=== PATIENT | female | born 1950 | race Caucasian/White ===

== ENCOUNTER 2018-06-27 02:16 | Outpatient (CLI) | payer MEDICARE, BC, SELFPAY ==
[2018-06-27 11:06] LABS: ALT 23 U/L (12-78); AST 20 U/L (15-37); Albumin 3.6 g/dL (3.4-5.0); Alkaline Phosphatase 82 U/L (46-116); Anion Gap 7.9 mmol/L (3-11); BUN 14 mg/dL (7-18); Bilirubin, Total 0.3 mg/dL (0.2-1.0); CO2 27.1 mmol/L (21.0-32.0); Chloride 107 mmol/L (98-107); Glucose 96 mg/dL (70-100); Sodium 142 mmol/L (136-145); Total Protein 6.5 g/dL (6.4-8.2)
== END 2018-06-27 02:36 ==
DX: R63.8 Other symptoms and signs concerning food and fluid intake (principal); M53.9 Dorsopathy, unspecified; G14 Postpolio syndrome; M16.11 Unilateral primary osteoarthritis, right hip
CPT/HCPCS: 36415; 80053

== ENCOUNTER 2018-11-19 13:12 | Emergency (ER) | payer MEDICARE, BC, SELFPAY ==
[2018-11-19] VITALS (37 sets, daily range): BP systolic 98–137; BP diastolic 48–77; PULSE 64–92; RESP 10–20; TEMP 36.6–37; O2SAT 95–100
--- NOTE | 2018-11-19 13:26 | DI.CT_ITS ---
SYMPTOMS/DIAGNOSIS: ? DISSECTION, CHEST PAIN CT ANGIOGRAPHY OF THE CHEST, ABDOMEN AND PELVIS: CT angiography was performed with multi slice acquisition and multi planar and 3D reconstruction. There is no evidence of pulmonary emboli or aortic dissection. There is mild calcific plaque in the aortic arch and proximal left subclavian artery. There is no significant subclavian stenosis. No pleural or pericardial effusions are seen. The heart is normal in size. The lungs are clear. There is no adenopathy. The aorta is normal in diameter throughout. There is no aneurysm, dissection or significant stenosis. There is no significant plaque. The visualized portions of the proximal femoral arteries are unremarkable. The renal, celiac and mesenteric arteries show no evidence of occlusion or thrombus. The liver, gallbladder, spleen, pancreas and adrenals are unremarkable. Right renal cysts are seen. There is no urinary tract calculi or hydronephrosis. There is diverticulum of the descending duodenum. There is no bowel dilatation or inflammatory change. Diverticula are also seen in the lower descending and sigmoid colon. There are bilateral hip prostheses creating artifact. The bladder and uterus are partially obscured. Degenerative changes are seen in the spine. IMPRESSION: No acute abnormality. There is diverticulosis of the sigmoid as well as a diverticulum of the descending duodenum.
--- NOTE | 2018-11-19 13:34 | ED.GENADUL_ITS ---
Discharge Plan Disposition Patient Disposition: HOME Condition: Stable Discharge Details Chief Complaint: Chest Pain Clinical Impression: Chest pain Reason For Visit: chest pain Primary Care Provider: Ariella Nj ED Provider: Ghassan Shukla Home Meds and New Rx's Prescriptions: New chlorzoxazone 500 mg tablet 500 mg PO QID PRN (Reason: pain) Qty: 30 RF: 0 Continued cephalexin 500 mg tablet See Patient Comments PO PRN RF: 0 psyllium husk [Metamucil] 0.52 GM capsule 1 - 2 cap PO DAILY RF: 0 loratadine 10 MG tablet 10 mg PO DAILY Qty: 30 RF: 6 chlorzoxazone 500 MG tablet 500 mg PO Q6H PRN Qty: 30 RF: 0 Discharge Instructions Instructions: Chest Pain (ED) Additional Instructions: follow up with your primary care provider within a week If you feel your pain is worsening, you have difficulty breathing or persistent vomit return to the emergency department Medical Decision Making 68 yo female who denies any hx of htn, hld, dm, has hx of polio when younger, comes in with chest discomfort since last night with some belching and left shoulder pain and upper back pain intermittently. She states she has had this in the past and was told likely muscle spasm and took a msucle relaxant this AM with some relief of the pain. She has mild epigastric pain, no guarding, has pain when I palpate the mid chest, clear lungs on exam. Her heart score is 2 based on her age, will send troponin to eval for acs. No hypoxia or tachycardia or evidence of dvt to suggest PE. Given some back pain and abdominal pain will obtain CTA to eval for dissection initial lab results unremarkable, ct on my read is also unremarkable, awaiting vrad report. She denies any chest pain but states she feels spasms in ner left shoulder she normally takes a muscle relaxer for and would like meds for that. Will order delta troponin and monitor pt remains stable, only has pain when I palpate the left atnerior chest wall, second troponin negative. She is requesting a refill of her chlozoxazone which I will provide, advised f/u with pcp and return precautions given Differential Diagnosis acs, dissection, muscle spasm, strain Medical Records Medical records reviewed: Yes I reviewed the patient's medical records. Imaging Data Radiologic Study: Attestation: I personally reviewed and interpreted this imaging study as follows: Imaging: CT Scan Radiologist's impression: no acute findings on CTA thorax/abd/pelvis Lab Data Lab results reviewed: Yes I reviewed the patient's lab results. ECG Data Attestation: I personally reviewed and interpreted this ECG (s) as follows: Prior ECG tracings: not available for review Interpretation: sinus rhyth, rate of 84, pr 146, no acute st t wave ischemic findings 2nd ekg shows sinus rhythm, rate of 71, pr 148, no acute st t wave ischemic changes HPI General Mode of arrival: ambulatory . Date/Time Provider Initiated Documentation: 11/19/18 13:14 . Limitations to Documentation: no limitations . Information obtained by: patient . History of Present Illness 68 year old F presents to the emergency department with the chief complaint of chest pain, described as moderate, with intensity rated at 5. Quality is described as aching, and is localized to the chest. Patient started experiencing this day(s) (1) and it has been constant. other things that improve symptom(s), (muscle relaxer) Other factors that worsen symptoms (pushing on chest) . Patient did receive the following treatments prior to arrival, other (muscle relaxer this AM) Related Data Home Medications Medication Instructions Recorded Confirmed psyllium husk [Metamucil] 1 - 2 cap PO DAILY 02/28/13 11/19/18 loratadine 10 mg PO DAILY #30 tab-cap 06/10/16 11/19/18 chlorzoxazone 500 mg PO Q6H PRN #30 tab-cap 10/07/17 11/19/18 cephalexin 500 mg tablet See Rx Instructions PO PRN tab 09/04/18 11/19/18 chlorzoxazone 500 mg PO QID PRN #30 tab 11/19/18 Previous Rx's Medication Instructions Recorded chlorzoxazone 500 mg PO Q6H PRN #30 tab-cap 10/07/17 chlorzoxazone 500 mg PO QID PRN #30 tab 11/19/18 Allergies Allergy/AdvReac Type Severity Reaction Status Date / Time CERTAIN ODORS Allergy Mild COUGH, Uncoded 11/19/18 13:35 SNEEZES Review of Systems Review of Systems All systems reviewed & are unremarkable except as noted in HPI and below Constitutional Denies chills, Denies fever(s) and Denies weakness Eyes Denies loss of vision ENT Denies change in voice Cardiovascular Denies dyspnea Respiratory Denies cough and Denies dyspnea Gastrointestinal Denies nausea and Denies vomiting Genitourinary Denies dysuria Musculoskeletal Denies joint swelling Integumentary/Breasts Denies rash Neurologic Denies loss of vision and Denies weakness Psychiatric Denies depression Endocrine Denies cold intolerance and Denies heat intolerance Allergic/Immunologic Denies urticaria PFSH Family History Mother Lung cancer Father Diabetes Essential hypertension Hyperlipidemia Stroke Brother Neoplasm Grandfather Liver cirrhosis Grandfather Heart disease Grandmother Neoplasm Social History household members: spouse highest education level completed: some college, no degree current occupational status: retired and disabled pets and animals: Yes pets and animals: cat(s) what type of physical activity do you participate in: walking and bicycling frequency: 5-6 times per week duration: 45-60 minutes/day Smoking and Tabacco status: Never Pasive smoking exposure: Yes alcohol intake: never substance use type: does not use natalie/spiritism: No preference special natalie needs: No Exam Const General: no acute distress Orientation: alert HENMT Head: normal to inspection Ears: external ears normal General nose exam: external nose normal Mouth: moist mucous membranes Eyes General: appearance normal, both eyes and all related structures Neck Neck: normal visual inspection Resp Effort & Inspection: normal respiratory effort and able to speak in complete sentences Cardio Rate: regular rate Skin General skin exam: no rashes or lesions noted Neuro General: alert and oriented x3 Extrem General: normal to inspection Psych Mental Status: mental status grossly normal
[2018-11-19] MEDS: Normal Saline Flush 10 ML SYR IVP (13:59)
[2018-11-19 14:20] LABS: ALT 21 U/L (12-78); AST 20 U/L (15-37); Albumin 3.6 g/dL (3.4-5.0); Alkaline Phosphatase 91 U/L (46-116); Anion Gap 10.4 mmol/L (3-11); BUN 15 mg/dL (7-18); Bilirubin, Direct 0.09 mg/dL (0.00-0.20); Bilirubin, Total 0.3 mg/dL (0.2-1.0); CO2 28.6 mmol/L (21.0-32.0); CREATININE 0.76 mg/dL (0.55-1.02); Calcium 9.1 mg/dL (8.5-10.1); Chloride 104 mmol/L (98-107); Glucose 100 mg/dL (70-100); Lipase 130 U/L (73-393); Magnesium 1.8 mg/dL (1.8-2.4); Potassium 3.8 mmol/L (3.5-5.1); Sodium 143 mmol/L (136-145); Total Protein 7.5 g/dL (6.4-8.2)
[2018-11-19] MEDS: Omnipaque 350 MG/ML 100 ML BTL IJ (14:21)
[2018-11-19 14:23] LABS: Troponin I < 0.02 ng/mL (0.00-0.06)
[2018-11-19 14:24] LABS: INR 0.9 (0.9-1.1); PTT Activated 22.3 sec (21.0-31.4); Prothrombin Time 9.4 sec (9.3-11.0)
[2018-11-19] MEDS: Cyclobenzaprine 10 MG TAB PO (14:52)
--- NOTE | 2018-11-19 15:07 | DI.VRAD_ITS ---
EXAM: CT Angiography Chest With Contrast EXAM DATE/TIME: 11/19/2018 1:28 PM CLINICAL HISTORY: 68 years old, female; Pain; Chest pain; Type not specified; Other: Mid back pain TECHNIQUE: Axial computed tomographic angiography images of the chest with intravenous contrast using CT angiography protocol. MIP reconstructed images were created and reviewed. COMPARISON: No relevant prior studies available. FINDINGS: Pulmonary arteries: No pulmonary emboli identified. Aorta: Minimal calcified plaque of the aortic arch and descending thoracic aorta. No aortic aneurysm or dissection. Great vessels off aortic arch: Minimal calcified plaque within the proximal left subclavian artery. No significant stenosis. Lungs: Normal. No consolidation. No masses. Pleural space: Normal. No pneumothorax. No pleural effusion. Heart: Normal. No cardiomegaly. No pericardial effusion. Lymph nodes: Unremarkable. No enlarged lymph nodes. Bones/joints: Degenerative spondylosis of the thoracic spine. No acute fracture. Soft tissues: Unremarkable. IMPRESSION: No acute abnormality. EXAM: CT Angiography Abdomen and Pelvis With Contrast EXAM DATE/TIME: 11/19/2018 1:28 PM CLINICAL HISTORY: 68 years old, female; Pain; Chest pain; Type not specified; Other: Mid back pain TECHNIQUE: Axial computed tomographic angiography images of the abdomen and pelvis with intravenous contrast material, including non-contrast images if performed. MIP and/or 3D reconstructed images were created and reviewed. COMPARISON: No relevant prior studies available. FINDINGS: Limitations: Evaluation of the lower pelvis is limited by artifact from bilateral total hip prostheses. VASCULATURE: Aorta: No aortic aneurysm. No aortic dissection. Celiac trunk and mesenteric arteries: No occlusion or significant stenosis. Renal arteries: Minimal calcified plaque at the origin of the left renal artery. No significant stenosis. The right renal artery is widely patent. Right iliac arteries: No occlusion or significant stenosis. Right femoral/popliteal arteries: No occlusion or significant stenosis of the imaged proximal femoral artery. The popliteal artery was not imaged. Left iliac arteries: No occlusion or significant stenosis. Left femoral/popliteal arteries: No occlusion or significant stenosis of the imaged proximal femoral artery. The popliteal artery was not imaged. ABDOMEN: Liver: No mass. Gallbladder and bile ducts: Unremarkable. No calcified stones. No ductal dilation. Pancreas: Unremarkable. No mass. No ductal dilation. Spleen: Unremarkable. No splenomegaly. Adrenals: Unremarkable. No mass. Kidneys and ureters: 3.6 cm and 1.9 cm cyst within the right kidney. No right renal stone or hydronephrosis. Normal left kidney. No left hydronephrosis. The distal ureters are suboptimally visualized secondary to artifact from bilateral total hip prostheses. Stomach and bowel: 2.3 cm diverticulum of the descending duodenum. No duodenal diverticulitis. Mild colonic diverticulosis is present. The No diverticulitis. Unremarkable stomach and small bowel. Appendix: No evidence of appendicitis. PELVIS: Bladder: Unremarkable. No mass. Reproductive: Unremarkable as visualized. ABDOMEN and PELVIS: Intraperitoneal space: Unremarkable. No free air. No significant fluid collection. Bones/joints: Degenerative spondylosis of the lumbar spine. No acute fracture. Soft tissues: Unremarkable. Lymph nodes: Unremarkable. No enlarged lymph nodes. IMPRESSION: No acute abnormality. Dictated and Authenticated by: Yonathan Hines MD. Ordering:ABBI Ferrell MD
[2018-11-19 17:01] LABS: Troponin I < 0.02 ng/mL (0.00-0.06)
== END 2018-11-19 17:27 | disposition home or self-care (01) ==
PROVIDERS: Emergency Provider Emergency Medicine
DX: R07.9 Chest pain, unspecified (principal)
CPT/HCPCS: 36415; 71275; 74177; 80053; 80076; 83690; 93005; 99285; 83735; 84484; 85610; 85730; 93010; J3490

== ENCOUNTER 2019-06-26 08:26 | Outpatient (CLI) | payer MEDICARE, BC, SELFPAY ==
[2019-06-26 10:49] LABS: Calculated LDL 94 mg/dL; Cholesterol 177 mg/dL (50-200); HDL Cholesterol 51 mg/dL (40-60); Triglyceride 160 mg/dL (30-150)
== END 2019-06-26 08:46 ==
DX: E78.2 Mixed hyperlipidemia (principal); I10 Essential (primary) hypertension
CPT/HCPCS: 36415; 80061

== ENCOUNTER 2019-07-24 01:47 | Outpatient (CLI) | payer MEDICARE, BC, SELFPAY ==
--- NOTE | 2019-07-24 12:48 | DI.MAMMO_ITS ---
EXAM: MG MAMMO SCREENING CLINICAL HISTORY: screening Z12.39 TECHNIQUE: Bilateral full field digital CC and MLO mammographic images were obtained with 3D tomosyn thesis and utilizing computer aided detection (CAD). COMPARISON: Available for comparison. FINDINGS: Masses/Architectural Distortion: There is an area of asymmetric breast tissue in the outer central le ft breast on the craniocaudad view. This likely reflects overlying fibroglandular tissue. A spot co mpression view is requested for further evaluation. Microcalcifications: No suspicious pleomorphic-type are seen. Skin Thickening/Nipple Retraction: None. IMPRESSION: Additional views of the left breast as described above. BI-RADS Cat 0 - Assessment Incomplete: Need additional imaging evaluation Breast Density - Category B - Scattered areas of fibroglandular density A negative radiographic report should not delay biopsy if a dominant or clinically suspicious mass is present. Up to ten percent of cancers are not identified on mammography. A negative report may reinforce clinical impression. Adenosis and dense breasts may obscure an underlying neoplasm. False positive reports average 6 to 10%.
== END 2019-07-24 02:07 ==
DX: Z12.39 Encounter for other screening for malignant neoplasm of breast (principal); R92.8 Other abnormal and inconclusive findings on diagnostic imaging of breast
CPT/HCPCS: 77063; 77067

== ENCOUNTER 2019-07-27 00:40 | Outpatient (CLI) | payer MEDICARE, BC, SELFPAY ==
--- NOTE | 2019-07-27 14:31 | DI.MAMMO_ITS ---
EXAM: MG MAMMO SCREEN CALL BACK UNI CLINICAL HISTORY: F/U MAMMO, ASYMMETRIC BREAST TISSUE LT BREAST TECHNIQUE: Additional images are interpreted according to the usual protocol including tomosynthesis and 2D imaging. COMPARISON: 2010 through June,. FINDINGS: A CC spot compression view with tomography was performed for questioned asymmetric density. No persi stent abnormality is seen. The findings are consistent with overlying fibroglandular tissue. IMPRESSION: Category 1, negative mammogram. Yearly screening mammography is recommended. BI-RADS Cat 1 - Negative Breast Density - Category B - Scattered areas of fibroglandular density
== END 2019-07-27 01:00 ==
DX: Z12.31 Encounter for screening mammogram for malignant neoplasm of breast (principal); R92.8 Other abnormal and inconclusive findings on diagnostic imaging of breast; N64.59 Other signs and symptoms in breast
CPT/HCPCS: 77063; 77067

== ENCOUNTER 2020-01-19 14:00 | Emergency (ER) | payer MEDICARE, BC, SELFPAY ==
[2020-01-19 14:05] VITALS: BP 177/73; PULSE 94; RESP 14; TEMP 36.7; O2SAT 95
--- NOTE | 2020-01-19 14:13 | W.ED.GENAD ---
Discharge Plan Disposition Patient Disposition: HOME Condition: Improving Discharge Details Chief Complaint: Orthopedic Clinical Impression: Left wrist sprain Primary Care Provider: Ariella Nj ED Provider: Satish Dominguez Home Meds and New Rx's Prescriptions: Continued cephalexin 500 mg tablet See Rx Instructions PO PRN RF: 0 chlorzoxazone 500 mg tablet 500 mg PO QID PRN (Reason: pain) Qty: 30 RF: 1 Discharge Instructions Instructions: Wrist Sprain (ED) Additional Instructions: May remove splint at bedtime and for bathing. Anticipate use over approximately 5 to 7 days time. Continue ice to reduce discomfort. You may use Tylenol as well as needed for pain. Return for increasing pain, development of cold/blue/numbness of the fingertips or any other acute concerns. Medical Decision Making 69-year-old female slipped and fell outside landing on outstretched left hand. She felt immediate distal radius pain. She is improved at the time of arrival after the application of ice. She does have mild pain and swelling on exam. Referred for x-ray to rule out underlying bony fracture. Radiograph without underlying evidence of acute fracture. Will place in wrist splint and discussed with her anticipated course of resolution/weaning from the splint. She will continue the use of ice, [id number] analgesics as needed. She is stable for discharge to home. [facility] General Mode of arrival: ambulatory. Date/Time Provider Initiated Documentation: 01/19/20 14:01. Limitations to Documentation: no limitations. Information obtained by: patient. History of Present Illness 69 year old F presents to the emergency department with the chief complaint of Left wrist pain after fall, described as mild, Quality is described as dull and constant, and is localized to the left and upper extremity. Patient started experiencing this minute(s) Rest improves symptom(s), Movement worsens symptoms . Patient notes no other symptoms.. Patient did receive the following treatments prior to arrival, cold therapy Related Data Home Medications Medication Instructions Recorded Confirmed cephalexin 500 mg tablet See Rx Instructions PO PRN tab 09/04/18 01/19/20 chlorzoxazone 500 mg tablet 500 mg PO QID PRN #30 tab 12/19/19 01/19/20 Previous Rx's Medication Instructions Recorded chlorzoxazone 500 mg tablet 500 mg PO QID PRN #30 tab 12/19/19 Allergies Allergy/AdvReac Type Severity Reaction Status Date / Time CERTAIN ODORS Allergy Mild COUGH, Uncoded 01/19/20 14:09 SNEEZES General Stated Complaint: Orthopedic GERARDO: 4 Review of Systems Narrative: No other injury, has been well and self isolating, no other complaints. 4 systems reviewed and otherwise negative [facility] Surgical History Arthroplasty of knee 03/14/14; [facility]; RIGHT TKR section X2 Ligation of fallopian tube Rotator Cuff Repair (~2006) and labrium Total replacement of hip LEFT Family History Mother , age 70 Lung cancer Father , age 70 Diabetes Essential hypertension Hyperlipidemia Stroke Brother , age 65 Cancer of head Primary cancer of sternum Lung cancer Liver cancer Maternal Grandfather , age 69 Liver cirrhosis Alcohol abuse Paternal Grandfather , age 43 Heart disease Maternal Grandmother Leukemia Paternal Grandmother , age 92 No problems noted. Son No problems noted. Daughter Asthma sports induced Social History Smoking/Tobacco Use Status: Never Alcohol Intake: never Drug use: Never Substance use type: does not use Caregiver/Support person: No Household members: spouse Housing: house Communication Needs: None Pets and animals: Yes Pets and animals: cat(s) Sexually active: No Do you think of yourself as: straight/heterosexual Current gender identity: female What is your relationship status?: How often do you talk on the phone with friends or family?: three or more times per week How often do you get together with friends or relatives?: twice per week How often do you attend congregation or baptism services?: decline to answer Do you belong to any clubs or organized social groups?: no Panel score (0-1 are the most socially isolated patients): 2 What type of physical activity do you participate in: walking and bicycling Duration: 45-60 minutes/day Frequency: 5-6 times per week Roselia/Taoism: None Special roselia needs: No Seatbelt use: always Helmet use: Yes Helmet use: sometimes Drive intox or ride w/intox taxicab driver: No Do you feel safe at home: Yes Do you feel safe in your relationship?: Yes Exam Narrative Exam Narrative: GEN: awake, alert, oriented 3. Pleasant, well groomed, interactive. HEAD: Normocephalic, atraumatic ENT: Mucous membranes moist, External ear exam unremarkable EYES: PERRL, EOMI CHEST/RESP: Nontender EXT: Full ROM, no edema, no rash. Mild swelling left distal radius, tenderness on the volar surface on palpation. Patient able to demonstrate normal range of motion, normal sensation. Neuro: Grossly normal neurologic exam, conversant, interactive. Psych: Speech fluent, thoughts congruent, affect normal Course Vital Signs Vital signs: Vital Signs Temperature 36.7 C 01/19/20 14:05 Pulse 94 H 01/19/20 14:05 Respiratory Rate 14 01/19/20 14:05 Blood Pressure 177/73 H 01/19/20 14:05 Pulse Oximetry 95 01/19/20 14:05 Temperature 36.7 C 01/19/20 14:05 Temperature Source Skin 01/19/20 14:05 Pulse 94 H 01/19/20 14:05 Respiratory Rate 14 01/19/20 14:05 Respiratory Effort Non-Labored 01/19/20 14:10 Blood Pressure 177/73 H 01/19/20 14:05 Blood Pressure Position Sitting 01/19/20 14:05 Pulse Oximetry 95 01/19/20 14:05 Oxygen Delivery Method Room Air 01/19/20 14:05 Oxygen Flow Rate 0 01/19/20 14:05 Pain Level 3 01/19/20 14:05
--- NOTE | 2020-01-19 14:20 | DI.RAD_ITS ---
EXAM: XR WRIST LT COMPLETE CLINICAL HISTORY: pain after fall. TECHNIQUE: 2D digital imaging was performed. COMPARISON: No exams were available for comparison FINDINGS: BONES: There are osseous densities seen at the dorsum of the wrist on the lateral view which may repr esent mildly displaced fracture fragments. Please correlate with the patient's site of pain. No bon y destructive lesion is seen. JOINTS: The carpal bones are normally aligned. Degenerative changes are seen at the interphalangeal j oint of the thumb. SOFT TISSUE: Soft tissue swelling about the wrist is noted. IMPRESSION: Osseous densities seen at the dorsum of the wrist. These may represent fracture fragments. Please c orrelate with the patient's site of pain. DATA REPOSITORY: RADIATION DOSE DELIVERED:
--- NOTE | 2020-01-19 14:24 | DI.VRAD_ITS ---
PROCEDURE INFORMATION: Exam: XR Left Wrist Exam date and time: 01/19/2020 2:19 PM Age: 69 years old Clinical indication: Patient HX: Left wrist pain after injury today. TECHNIQUE: Imaging protocol: XR Left wrist. Views: 3 or more views. COMPARISON: No relevant prior studies available. FINDINGS: Bones/joints: Unremarkable. No acute fracture. Soft tissues: Normal. IMPRESSION: No acute findings. Dictated and Authenticated by: Zak Sanchez MD. Ordering:HILDA Covarrubias MD
== END 2020-01-19 14:35 | disposition home or self-care (01) ==
PROVIDERS: Emergency Provider Emergency Medicine
DX: S63.502A Unspecified sprain of left wrist, initial encounter (principal); W01.0XXA Fall on same level from slipping, tripping and stumbling without subsequent striking against object, initial encounter
CPT/HCPCS: 29125; 99283; 73110; L3908

== ENCOUNTER 2020-07-08 01:48 | Outpatient (CLI) | payer MEDICARE, BC, SELFPAY ==
[2020-07-08 12:53] LABS: ALT 20 U/L (14-59); AST 17 U/L (15-37); Albumin 3.7 g/dL (3.4-5.0); Alkaline Phosphatase 75 U/L (46-116); Anion Gap 11.4 mmol/L (3-11); BUN 15 mg/dL (7-18); Bilirubin, Total 0.4 mg/dL (0.2-1.0); CO2 28.6 mmol/L (21.0-32.0); CREATININE 0.75 mg/dL (0.55-1.02); Chloride 105 mmol/L (98-107); Glucose 90 mg/dL (74-106); Potassium 4.1 mmol/L (3.5-5.1); Sodium 145 mmol/L (136-145); Total Protein 6.6 g/dL (6.4-8.2)
== END 2020-07-08 02:08 ==
DX: K21.9 Gastro-esophageal reflux disease without esophagitis (principal); M53.9 Dorsopathy, unspecified; R63.8 Other symptoms and signs concerning food and fluid intake
CPT/HCPCS: 36415; 80053

== ENCOUNTER 2021-01-27 17:32 | Outpatient (CLI) | payer MEDICARE, BC, SELFPAY ==
--- NOTE | 2021-01-27 13:48 | DI.RAD_ITS ---
Exam(s) XR CERVICAL SPINE COMP 4-5V EXAM: XR CERVICAL SPINE COMP 4-5V CLINICAL HISTORY: neck pain, M54.2, cervicalgia. TECHNIQUE: 2D digital imaging was performed. COMPARISON: No exams were available for comparison FINDINGS: The odontoid is intact. The lateral masses are well aligned. There is straightening of the normal c ervical lordosis. This may be due to muscle spasm or patient positioning. Disc space narrowing is s een at C5-6 and C6-C7. There are endplate osteophytes at multiple levels of the cervical spine. Fac et arthropathy is seen throughout the cervical spine. On the right, there is moderate narrowing of t he neural foramen at C3-C4. On the left, [id number] narrowing of the neural foramen is seen fr om C3-4 through C5-C6. IMPRESSION: [id number] cervical spondylosis. DATA REPOSITORY: RADIATION DOSE DELIVERED:
== END 2021-01-27 17:52 ==
PROVIDERS: Visit Provider Nurse Practitioner Family
DX: M54.2 Cervicalgia (principal); M47.812 Spondylosis without myelopathy or radiculopathy, cervical region
CPT/HCPCS: 72050

== ENCOUNTER 2021-07-02 02:53 | Outpatient (CLI) | payer MEDICARE, BC, SELFPAY ==
[2021-07-02 12:55] LABS: ALT 23 U/L (14-59); AST 19 U/L (15-37); Albumin 3.9 g/dL (3.4-5.0); Alkaline Phosphatase 79 U/L (46-116); Anion Gap 7.1 mmol/L (3-11); BUN 16 mg/dL (7-18); Bilirubin, Total 0.3 mg/dL (0.2-1.0); CO2 28.9 mmol/L (21.0-32.0); CREATININE 0.7 mg/dL (0.55-1.02); Calcium 9.2 mg/dL (8.5-10.1); Chloride 107 mmol/L (98-107); Glucose 88 mg/dL (74-106); Potassium 4.2 mmol/L (3.5-5.1); Sodium 143 mmol/L (136-145); Total Protein 6.8 g/dL (6.4-8.2)
== END 2021-07-02 02:54 | disposition home or self-care (01) ==
LOC: LOS 02:53
DX: K21.9 Gastro-esophageal reflux disease without esophagitis (principal); Z00.00 Encounter for general adult medical examination without abnormal findings; M54.59 Other low back pain
CPT/HCPCS: 36415; 80053

== ENCOUNTER 2021-09-10 00:52 | Outpatient (CLI) | payer MEDICARE, BC, SELFPAY ==
--- NOTE | 2021-09-10 10:46 | DI.MAMMO_ITS ---
Exam(s) MAMMO SCREENING EXAM: MAMMO SCREENING CLINICAL HISTORY: screening,Z12.39. TECHNIQUE: Bilateral full field digital CC and MLO mammographic images were obtained with 3D tomosyn thesis and utilizing computer aided detection (CAD). COMPARISON: Prior mammograms dating back to 2012, the most recent being June 2019. FINDINGS: No CAD designations There are no new spiculated masses nor malignant appearing microcalcification groups. There is no significant architectural distortion nor skin thickening-retraction. IMPRESSION: No radiographic evidence of malignancy. BI-RADS Category 1 - Negative Breast Density - Category B - Scattered areas of fibroglandular density Breast density Category C or D implies that the patient has dense breast tissue. Dense breast tissue can make it harder to find cancer on a mammogram. Dense breast tissue is also associated with an incr eased risk of breast cancer. This information about the result of the mammogram report was provided to the patient to raise their awareness. Use this report when you speak with the patient about their risks for breast cancer, which includes their family history. At that time, you may recommend additional screening tests (Ultrasoun d or MRI) as these tests may add significant information. A negative radiographic report should not delay biopsy if a dominant or clinically suspicious mass is present. Up to ten percent of cancers are not identified on mammography. A negative report may reinforce clinical impression. Adenosis and dense breasts may obscure an underlying neoplasm. False positive reports average 6 to 10%. Patient will receive a letter notifying them of these results.
== END 2021-09-10 01:12 ==
DX: Z12.31 Encounter for screening mammogram for malignant neoplasm of breast (principal)
CPT/HCPCS: 77063; 77067

== ENCOUNTER 2021-09-14 14:15 | Outpatient (REF) | payer MEDICARE, BC, SELFPAY ==
--- NOTE | 2021-09-14 11:45 | SKI_PTH ---
PATIENT: Marlen Vasquez LOC: [facility]#:[id number] AGE/SX: 70/F ROOM: RE09/14/[address]: Ariella Nj APRN : 1950 BED: DIS: 09/14/2021 SPEC #: [id number] RECD: 09/14/21 18:29 STATUS: [place]GET[place] REQ #: [id number] MARK: 09/14/21 11:[address]: Ariella Nj DEPT: Surgical Specimen RECD BY: Yohana Painting Tissues: 1 - SKIN CYST/TAG/DEBRIDEMENT Procedures: GROSS AND MICRO LEVEL 3 Comments: [id number]
== END 2021-09-14 14:16 | disposition home or self-care (01) ==
LOC: LBN 14:15
DX: L72.8 Other follicular cysts of the skin and subcutaneous tissue (principal)
CPT/HCPCS: 88304

== ENCOUNTER 2021-10-26 15:13 | Outpatient (REF) | payer MEDICARE, BC, SELFPAY ==
[2021-10-28 09:27] LABS: COVID-19 RT-PCR UVMMC Result Indeterminate (Negative)
== END 2021-10-26 15:14 | disposition home or self-care (01) ==
LOC: LBN 15:13
PROVIDERS: Visit Provider Nurse Practitioner Family
DX: Z20.822 Contact with and (suspected) exposure to COVID-19 (principal)
CPT/HCPCS: U0003

== ENCOUNTER 2022-04-05 11:31 | Outpatient (REF) | payer MEDICARE, BC, SELFPAY ==
[2022-04-06 01:21] LABS: COVID-19 RT-PCR UVMMC Result Negative (Negative)
== END 2022-04-05 11:32 | disposition home or self-care (01) ==
LOC: LBN 11:31
PROVIDERS: Visit Provider Nurse Practitioner Family
DX: Z20.822 Contact with and (suspected) exposure to COVID-19 (principal)
CPT/HCPCS: U0003

== ENCOUNTER 2022-04-06 02:08 | Outpatient (CLI) | payer MEDICARE, BC, SELFPAY | END 2022-04-06 02:09 | disposition home or self-care (01) | LOC: LBO 02:08 | PROVIDERS: Visit Provider Nurse Practitioner Family ==

== ENCOUNTER 2022-10-08 01:20 | Outpatient (CLI) | payer MEDICARE, BC, SELFPAY ==
[2022-10-08 08:50] LABS: HCT 42.6 % (36.0-46.0); HGB 13.9 g/dL (11.2-15.7); MCH 28.8 pg (27.0-33.0); MCHC 32.6 % (32.0-36.0); MCV 88 fL (80-95); MPV 10.1 fL (8.0-11.0); Platelet Count 226 10^3/uL (130-400); RBC 4.82 10^6/uL (3.93-5.22); RDW 12.9 % (11.7-14.6); RDW-SD 41.7 fL; WBC 7.62 10^3/uL (4.4-10.8)
[2022-10-08 09:36] LABS: ALT 16 U/L (14-59); AST 22 U/L (15-37); Albumin 3.9 g/dL (3.4-5.0); Alkaline Phosphatase 82 U/L (46-116); Anion Gap 7.3 mmol/L (3-11); BUN 18 mg/dL (7-18); Bilirubin, Total 0.4 mg/dL (0.2-1.0); CO2 28.7 mmol/L (21.0-32.0); CREATININE 0.9 mg/dL (0.55-1.02); Calcium 9.6 mg/dL (8.5-10.1); Chloride 106 mmol/L (98-107); Glucose 101 mg/dL (74-106); Potassium 3.8 mmol/L (3.5-5.1); Sodium 142 mmol/L (136-145); Total Protein 7.6 g/dL (6.4-8.2)
[2022-10-08 10:08] LABS: Vitamin D 25 Total 29.7 ng/mL (30-100)
[2022-10-08 10:11] LABS: FREE T4 0.86 ng/dL (0.76-1.46)
== END 2022-10-08 01:21 | disposition home or self-care (01) ==
PROVIDERS: PCP Nurse Practitioner Family; Visit Provider Nurse Practitioner Family
DX: R53.83 Other fatigue (principal); G14 Postpolio syndrome; M53.9 Dorsopathy, unspecified; R63.8 Other symptoms and signs concerning food and fluid intake; E55.9 Vitamin D deficiency, unspecified
CPT/HCPCS: 36415; 80053; 82306; 85027; 84439; 84443

== ENCOUNTER 2022-10-14 02:37 | Outpatient (CLI) | payer MEDICARE, BC, SELFPAY ==
--- NOTE | 2022-10-14 07:15 | DI.MAMMO_ITS ---
Exam(s) MAMMO SCREENING EXAM: MAMMO SCREENING CLINICAL HISTORY: screening,Z12.39. TECHNIQUE: Bilateral full field digital CC and MLO mammographic images were obtained with 3D tomosyn thesis and utilizing computer aided detection (CAD). COMPARISON: Prior mammograms were reviewed. FINDINGS: There has been no significant change in the appearance and distribution of the fibroglandular tissue. There are no CAD designations. There are no new spiculated masses nor malignant appearing microcalcification groups. There is no significant architectural distortion nor skin thickening-retraction. IMPRESSION: No radiographic evidence of malignancy. BI-RADS Category 1 - Negative Breast Density - Category A - Almost entirely fatty Breast density Category C or D implies that the patient has dense breast tissue. Dense breast tissue can make it harder to find cancer on a mammogram. Dense breast tissue is also associated with an incr eased risk of breast cancer. This information about the result of the mammogram report was provided to the patient to raise their awareness. Use this report when you speak with the patient about their risks for breast cancer, which includes their family history. At that time, you may recommend additional screening tests (Ultrasoun d or MRI) as these tests may add significant information. A negative radiographic report should not delay biopsy if a dominant or clinically suspicious mass is present. Up to ten percent of cancers are not identified on mammography. A negative report may reinforce clinical impression. Adenosis and dense breasts may obscure an underlying neoplasm. False positive reports average 6 to 10%. Patient will receive a letter notifying them of these results.
== END 2022-10-14 02:57 ==
LOC: DI 02:37
PROVIDERS: PCP Nurse Practitioner Family; Visit Provider Nurse Practitioner Family
DX: Z12.31 Encounter for screening mammogram for malignant neoplasm of breast (principal)
CPT/HCPCS: 77063; 77067

== ENCOUNTER → 2023-10-17 01:26 | Outpatient (CLI) | payer MEDICARE, BC, SELFPAY ==
--- NOTE | 2023-10-17 11:55 | DI.MAMMO_ITS ---
Exam(s) MAMMO SCREENING EXAM: MAMMO SCREENING CLINICAL HISTORY: screening,Z12.39 TECHNIQUE: Mammograms were interpreted according to the usual protocol including computer analysis w [employer] CAD system, tomosynthesis and C-view imaging. COMPARISON: 2014 through 2022 FINDINGS: The breasts are composed of mainly fatty density , Breast Density category A. No suspicious masses or suspicious microcalcifications are seen. No skin thickening or abnormal axillary lymph nodes are seen. There has been no significant change from prior exams. IMPRESSION: BI-RADS Category 1, Negative mammogram Yearly screening mammography is recommended. Breast Density - Category A, fatty density. A negative radiographic report should not delay biopsy if a dominant or clinically suspicious mass is present. Up to ten percent of cancers are not identified on mammography. A negative report may reinforce clinical impression. Adenosis and dense breasts may obscure an underlying neoplasm. False positive reports average 6 to 10%. Patient will receive a letter notifying them of these results.
== END ==
PROVIDERS: PCP Nurse Practitioner Family; Visit Provider Nurse Practitioner Family
DX: Z12.31 Encounter for screening mammogram for malignant neoplasm of breast (principal)
CPT/HCPCS: 77063; 77067

== ENCOUNTER 2023-12-10 12:25 | Emergency (ER) | payer MEDICARE, BC, SELFPAY ==
[2023-12-10 12:27] VITALS: BP 202/78; PULSE 115; RESP 22; TEMP 36.5; O2SAT 95
--- NOTE | 2023-12-10 12:42 | ED.GENADUL_ITS ---
Discharge Plan Disposition Patient Disposition: Home Condition: Stable Discharge Details Clinical Impression: Nausea vomiting and diarrhea Primary Care Provider: Romain Hester ED Provider: Ghassan Shukla Home Meds and New Rx's Prescriptions: New ondansetron 4 mg tablet,disintegrating 4 mg PO Q8H PRN (Reason: nausea and vomiting) Qty: 30 0RF Continued chlorzoxazone 500 mg tablet 500 mg PO QID PRN (Reason: pain) Qty: 30 1RF All Day Allergy (cetirizine) 10 mg capsule 10 mg PO DAILY Qty: 90 3RF Discharge Instructions Instructions: Acute Nausea and Vomiting (ED) Additional Instructions: You are likely suffering from a viral stomach bug Not improving this week follow-up with your primary care provider Can take [id number] diarrhea aid such as Imodium or Pepto-Bismol, follow dosing instructions on packaging If you feel more ill, have persistent vomiting despite the prescribed medication or severe abdominal pain return to the emergency department for reevaluation HPI General Date/Time Provider Initiated Documentation: 12/10/23 12:27 . Limitations to Documentation: no limitations . Information obtained by: patient . History of Present Illness 73 year old F presents to the emergency department with the chief complaint of Nausea vomiting diarrhea, described as moderate, Patient started experiencing this day(s) (1) and it has been intermittent. No relieving factors improve symptom(s), No exacerbating factors reported . Patient notes denies chest pain and shortness of breath. Patient did receive the following treatments prior to arrival, none Related Data Home Medications Medication Instructions Recorded Confirmed chlorzoxazone 500 mg tablet 500 mg PO QID PRN pain #30 tabs 01/19/23 12/10/23 cetirizine 10 mg capsule (All Day 10 mg PO DAILY #90 caps 11/17/23 12/10/23 Allergy (cetirizine)) ondansetron 4 mg disintegrating 4 mg PO Q8H PRN nausea and 12/10/23 tablet vomiting #30 tabs Previous Rx's Medication Instructions Recorded chlorzoxazone 500 mg tablet 500 mg PO QID PRN pain #30 tabs 01/19/23 cetirizine 10 mg capsule (All Day 10 mg PO DAILY #90 caps 11/17/23 Allergy (cetirizine)) ondansetron 4 mg disintegrating 4 mg PO Q8H PRN nausea and 12/10/23 tablet vomiting #30 tabs Allergies Allergy/AdvReac Type Severity Reaction Status Date / Time CERTAIN ODORS Allergy Mild COUGH, Uncoded 12/10/23 12:32 SNEEZES General Stated Complaint: Nausea/Vomit/Diar GERARDO: 3 Review of Systems All systems reviewed & are unremarkable except as noted in HPI and below Constitutional Constitutional: Reports chills, Denies fever(s) and Denies weakness Cardiovascular Cardiovascular: Denies chest pain and Denies dyspnea Respiratory Respiratory: Denies cough and Denies dyspnea Gastrointestinal Gastrointestinal: Denies abdominal pain, Reports nausea and Reports vomiting Genitourinary Genitourinary: Denies dysuria Musculoskeletal Musculoskeletal: Denies joint swelling Integumentary/Breasts Skin/Breast: Denies rash Neurologic Neurologic: Denies weakness Exam Const General: no acute distress Orientation: alert HENMT Head: normal to inspection Ears: external ears normal General nose exam: external nose normal Mouth: moist mucous membranes Eyes General: appearance normal, both eyes and all related structures Neck Neck: normal visual inspection Resp Effort & Inspection: normal respiratory effort and able to speak in complete sentences Auscultation: clear to auscultation bilaterally Cardio Rate: regular rate Heart Sounds: no murmurs GI Palpation: soft and nontender Skin General skin exam: no rashes or lesions noted Neuro General: patient alert and patient oriented x3 Extrem General: normal to inspection Psych Mental Status: mental status grossly normal Course Vital Signs Vital signs: Vital Signs Temperature 36.5 C 12/10/23 12:27 Pulse 115 H 12/10/23 12:27 Respiratory Rate 22 12/10/23 12:27 Blood Pressure 202/78 H 12/10/23 12:27 Pulse Oximetry 95 12/10/23 12:27 Temperature 36.5 C 12/10/23 12:27 Temperature Source Skin 12/10/23 12:27 Pulse 115 H 12/10/23 12:27 Respiratory Rate 22 12/10/23 12:27 Respiratory Effort Normal 12/10/23 12:31 Blood Pressure 202/78 H 12/10/23 12:27 Blood Pressure Position Sitting 12/10/23 12:27 Pulse Oximetry 95 12/10/23 12:27 Medical Decision Making 73-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 States she woke up feeling okay but then during the day she started to feel some nausea and then started having diarrhea. Later that night she started vomiting. Continue to have symptoms today so came here for evaluation. She denies any fevers but has had some intermittent chills. Denies any chest pain, difficulty breathing, abdominal pain, recent travel. Denies any recent antibiotics. She is alert and oriented on arrival and appears well, mucous membranes do appear dry, her abdomen is soft and nontender. Symptoms with the diarrhea and vomiting are consistent with likely viral gastroenteritis, will give IV fluids and Zofran, check a CBC, CMP, lipase and reassess. Given lack of abdominal tenderness and no pain do not feel imaging of abdomen indicated currently Patient feels much better requesting discharge, labs show white count of 16 which is likely reactive, she has no abdominal pain at all and has no tenderness anywhere on her abdominal exam. Feel any imaging indicated. Suspect viral gastroenteritis, advised to follow-up with her primary care provider this week if not improving and return precautions given. Initial systolic BP was over 200 but this was taken while she was vomiting, repeat is now 118 systolic. Differential Diagnosis Differential Diagnosis: Viral gastroenteritis, dehydration Lab Data Lab results reviewed: Yes I reviewed the patient's lab results. Quality:[facility] Health Related Social Needs: No Data to Display [facility] All Active Problems (Updated 12/10/23 @ 13:36 by Ghassan Shukla MD) Nausea vomiting and diarrhea (Acute) Fatigue (Acute) Dry skin (Acute) Balance disorder (Acute) Neck pain (Acute) Skin lesion (Acute) right axilla Sebaceous cyst (Acute) 06/2020 - posterior neck Right knee pain (Acute) Status post hip replacement (Acute 05/31/14) Status post rotator cuff repair (Acute) Status post total knee replacement (Acute) GERD (gastroesophageal reflux disease) (Acute) Osteoarthritis of right hip (Acute 10/07/15) Injured in March. Initially thought dislocated imaging ruled out. Is treated by Juan Fuentes. Pain and arthralgia have totally resolved at this point and she feels the joint is strong. Continue to monitor. 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 She walks with crutches. Onychomycosis (Acute) Increased BMI (Acute) Disorder characterized by back pain (Acute) MRI Tank (Lumbar) 01/04/18 - Mild low lumbar DJD, exagerated lordosis, and gentle scoliosis. No fx or masses. L3-L5 disc bulging, facet arthropathy; no large disc extrusions or limiting central canal stenosis.Suspected unilateral L5 pars interarticularis defect w/stress-related edema or a stress Fx w/edema propagating into the pedicle. Medical History Sinusitis, acute Injury of clavicle (08/25/06) Headache Only occasional at this point. Well controlled. Surgical History History of bilateral ligation of fallopian tubes History of section Status post unilateral knee replacement Ligation of fallopian tube Rotator Cuff Repair (~2006) and labrium Total replacement of hip LEFT section X2 Arthroplasty of knee 03/14/14; [facility]; RIGHT TKR Family History Mother , age 70 Lung cancer Father , age 70 Diabetes Essential hypertension Hyperlipidemia Stroke Brother , age 65 Cancer of head Primary cancer of sternum Lung cancer Liver cancer Maternal Grandfather , age 69 Liver cirrhosis Alcohol abuse Paternal Grandfather , age 43 Heart disease Maternal Grandmother Leukemia Paternal Grandmother , age 92 No problems noted. Son No problems noted. Daughter Asthma sports induced Social History Smoking/Tobacco Use Status: Never Second Hand Exposure: Yes Smoking risk assessment performed?: Yes Alcohol Intake: never Drug use: Never Substance use type: does not use Counseling given: No Counseling provided: none Caregiver/Support person: No Household members: spouse Housing: house Communication Needs: None Do you need help understanding health information?: Rarely Pets and animals: No Sexually active: No Do you think of yourself as: straight/heterosexual Current gender identity: female What is your relationship status?: How often do you talk on the phone with friends or family?: three or more times per week How often do you get together with friends or relatives?: three or more times per week How often do you attend sikh or yarsanism services?: decline to answer Do you belong to any clubs or organized social groups?: no Panel score (0-1 are the most socially isolated patients): 2 What type of physical activity do you participate in: walking and bicycling Duration: 30-45 minutes/day Frequency: 5-6 times per week Roselia/Gnosticist: No preference Special roselia needs: No Seatbelt use: always Helmet use: Yes Helmet use: sometimes Drive intox or ride w/intox 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
[2023-12-10] MEDS: Normal Saline 1,000 ML 1000 ML IV (12:45)
[2023-12-10 12:52] LABS: Abs Immature Grans 0.06 10^3/uL (0.0-0.06); Absolute Basophil Count 0.05 10^3/uL (0.0-0.2); Absolute Lymphocyte Count 0.48 10^3/uL (1.2-3.4); Basophils % 0.3; Eosinophils % 0.1; HCT 46.7 % (36.0-46.0); HGB 15.4 g/dL (11.2-15.7); Immature Grans % 0.4; Lymphocytes % 2.9; MCV 88 fL (80-95); MPV 10.1 fL (8.0-11.0); Monocytes % 2.5; Neutrophils % 93.8; Platelet Count 219 10^3/uL (130-400); RBC 5.31 10^6/uL (3.93-5.22); RDW 13.1 % (11.7-14.6); RDW-SD 42.5 fL; WBC 16.66 10^3/uL (4.4-10.8)
[2023-12-10] MEDS: Ondansetron 4 MG/2 ML VIAL IVP (12:52)
[2023-12-10 12:54] LABS: Absolute Eosinophil Count 0.02 10^3/uL (0.0-0.7); Absolute Monocyte Count 0.42 10^3/uL (0.1-0.8); Absolute Neutrophil Count 15.63 10^3/uL (1.2-6.7)
[2023-12-10 13:06] LABS: ALT 22 U/L (14-59); AST 20 U/L (15-37); Alkaline Phosphatase 98 U/L (46-116); Anion Gap 10.8 mmol/L (3-11); BUN 19 mg/dL (7-18); Bilirubin, Total 0.6 mg/dL (0.2-1.0); CO2 25.2 mmol/L (21.0-32.0); Calcium 9.1 mg/dL (8.5-10.1); Chloride 106 mmol/L (98-107); Estimated GFR 60.23 (mL/min/1.73m2); Glucose 158 mg/dL (74-106); Lipase 22 U/L (16-77); Magnesium 1.9 mg/dL (1.8-2.4); Potassium 3.8 mmol/L (3.5-5.1); Sodium 142 mmol/L (136-145); Total Protein 7.8 g/dL (6.4-8.2)
[2023-12-10 13:24] LABS: COVID-19 PCR Negative (Negative); Influenza A PCR Negative (Negative); Influenza B PCR Negative (Negative); RSV PCR Negative (Negative)
[2023-12-10 13:29] LABS: Source Nasopharynx
[2023-12-10 13:37] VITALS: BP 118/49; PULSE 91; RESP 16; TEMP 37.4; O2SAT 96
[2023-12-10] MEDS: Ondansetron O.D.T. 4 MG TABEF, 3 TABS/BTL PO (13:52)
== END 2023-12-10 13:56 | disposition home or self-care (01) ==
PROVIDERS: Emergency Provider Emergency Medicine; PCP Nurse Practitioner Family
DX: R11.2 Nausea with vomiting, unspecified (principal); R19.7 Diarrhea, unspecified; Z87.19 Personal history of other diseases of the digestive system
CPT/HCPCS: 80053; 83690; 87637; 96361; 96374; 99284; 83735; 85025; 99283; J2405

== ENCOUNTER 2023-12-13 12:32 | Emergency (ER) | payer MEDICARE, BC, SELFPAY ==
[2023-12-13 12:37] VITALS: BP 153/71; PULSE 90; RESP 16; TEMP 36.7; O2SAT 98
--- NOTE | 2023-12-13 12:45 | DI.CT_ITS ---
Exam(s) CT ABDOMEN PELVIS W EXAM: CT ABDOMEN PELVIS W CLINICAL HISTORY: diarrhea, lower abdominal pain. TECHNIQUE: Imaging Protocol: Axial computed tomography images with coronal and sagittal reformatted images were created and reviewed CONTRAST MATERIAL: Intravenous: Omnipaque-350 100cc Oral: None COMPARISON: No exams were available for comparison FINDINGS: VISUALIZED LUNG BASES: No nodules nor pleural effusions evident. ABDOMEN: There is no ascites. LIVER: There are no focal hepatic lesions evident. No dilated intrahepatic ducts. GALLBLADDER/BILIARY: No obvious gallbladder pathology. CBD is not dilated. PANCREAS: No pancreatic mass evident and no dilatation of the pancreatic duct. Large duodenal divert iculum is noted overlying the pancreatic head. SPLEEN: Spleen is not enlarged. No obvious intrasplenic lesions. Splenic and portal veins are paten t. ADRENALS: There are no significant adrenal masses. KIDNEYS:There are benign cysts in the right kidney. The largest of these is parapelvic and measures 4 x 4 cm. Do not require further imaging workup. No calculi nor hydronephrosis. No focal findings in the opposite-left kidney. Ureters are not dilated. Urinary bladder is partially obscured by beam hardening artifact from bilateral hip prostheses. The bladder is not distended.. ABDOMINAL AORTA: Abdominal aorta is not enlarged. LYMPH NODES:There is no retroperitoneal nor paraaortic adenopathy. ABDOMINAL WALL: No evidence of significant anterior abdominal wall nor inguinal hernia. GI: The stomach and duodenal are fluid-filled and mildly distended in the same is true of central and left-sided small bowel loops which are fluid-filled and slightly dilated up to 3 cm diameter. There is mild fecalization of some distal small bowel loops. There is no fluid in the colon. There are d iverticuli in the descending-left colon and sigmoid. No obvious acute diverticulitis realizing the p art of the sigmoid is obscured by beam hardening artifact from bilateral hip prostheses. PELVIS: GI: The appendix is not identified as a separate structure. There are no obvious signs of appendicit is.No evidence of obvious diverticulitis. LYMPH NODES: There is no intrapelvic nor inguinal adenopathy. REPRODUCTIVE: Uterus and adnexal regions appear unremarkable although partially obscured by beam hard ening artifact. URINARY BLADDER: Not distended but difficult to evaluate due to beam hardening artifact. There is so me circumferential bowel wall thickening noted. OSSEOUS: Bilateral hip prostheses. No acute fractures. Mild degenerative anterolisthesis L4 upon L5 related to facet arthropathy. There are no pars defects. IMPRESSION: 1. There is abundant fluid in the stomach, duodenal, and small bowel loops consistent with enteritis pattern. There is no evidence of bowel obstruction. No fluid seen in the large bowel. There are mu ltiple slightly prominent lymph nodes in the mesentery which measure up to 1.2 cm and are probably re active. 2. Diverticulosis of the left side of the colon and sigmoid without obvious diverticulitis. 3. Urinary bladder and adnexal regions are somewhat difficult to evaluate because of beam hardening a rtifact from bilateral hip prostheses. 4. Other findings as above. Called by myself to ER physician RADIATION DOSE DELIVERED: Total DLP DATA REPOSITORY: All CT scans at this facility are submitted to the National Radiology Data Registry (NRDR) Dose Index Registry (DIR) with the [employer] (A[employer]). RADIATION OPTIMIZATION: All CT scans at this facility use at least one of these dose optimization te chniques: automated exposure control; mA and/or kV adjustment per patient size (includes targeted exa ms where dose is matched to clinical indication); or iterative reconstruction.
--- NOTE | 2023-12-13 13:02 | ED.GENADUL_ITS ---
Discharge Plan Disposition Patient Disposition: Home Condition: Improving Discharge Details Chief Complaint: Abd Prob Clinical Impression: Gastroenteritis Primary Care Provider: Romain Hester ED Provider: Janak Walls Home Meds and New Rx's Prescriptions: No Action chlorzoxazone 500 mg tablet 500 mg PO QID PRN (Reason: pain) Qty: 30 1RF All Day Allergy (cetirizine) 10 mg capsule 10 mg PO DAILY Qty: 90 3RF ondansetron 4 mg tablet,disintegrating 4 mg PO Q8H PRN (Reason: nausea and vomiting) Qty: 30 0RF Discharge Instructions Instructions: Gastroenteritis (ED) Additional Instructions: Please follow with your primary care physician HPI General Date/Time Provider Initiated Documentation: 12/13/23 12:47 . HPI Narrative: 73-year-old female presents with 3 days of diarrhea worse at night, mustard loose stool, no blood no mucus. Of note multiple family members with GI symptoms over the last week. Patient did have nausea and vomiting that has now resolved. Abdominal cramping and excessive flatulence. Denies recent travel denies recent hospitalization denies recent antibiotic use Related Data Home Medications Medication Instructions Recorded Confirmed chlorzoxazone 500 mg tablet 500 mg PO QID PRN pain #30 tabs 01/19/23 12/13/23 cetirizine 10 mg capsule (All Day 10 mg PO DAILY #90 caps 11/17/23 12/13/23 Allergy (cetirizine)) ondansetron 4 mg disintegrating 4 mg PO Q8H PRN nausea and 12/10/23 12/13/23 tablet vomiting #30 tabs Previous Rx's Medication Instructions Recorded chlorzoxazone 500 mg tablet 500 mg PO QID PRN pain #30 tabs 01/19/23 cetirizine 10 mg capsule (All Day 10 mg PO DAILY #90 caps 11/17/23 Allergy (cetirizine)) ondansetron 4 mg disintegrating 4 mg PO Q8H PRN nausea and 12/10/23 tablet vomiting #30 tabs Allergies Allergy/AdvReac Type Severity Reaction Status Date / Time CERTAIN ODORS Allergy Mild COUGH, Uncoded 12/13/23 12:36 SNEEZES General Stated Complaint: Abd Prob GERARDO: 3 Review of Systems Narrative: Review of Systems Constitutional: negative Eyes: negative ENT: negative Cardiovascular: negative Respiratory: negative Gastrointestinal: Gas, abdominal pain, diarrhea : negative Musculoskeletal: negative Skin: negative Neurologic: negative Psych: negative Exam Narrative Exam Narrative: Physical Examination General: alert, awake, cooperative, resting comfortably, no acute distress HEENT: normocephalic, atraumatic; PERRL, EOM intact, conjunctiva normal; no nasal discharge; moist mucous membranes, oral and pharyngeal mucosa normal, tolerating secretions Neck: supple, trachea midline; full ROM Chest: normal to inspection Respiratory: normal respiratory effort, speaking in full sentences, clear to auscultation, no wheezing, rales or rhonchi Cardiac: regular rate, regular rhythm, S1S2 intact, no murmurs rubs or gallops GI: abdomen soft, non-tender, non-distended; no palpable mass or hepatosplenomegaly Skin: no lesions, rashes or trauma appreciated Neuro: AAOx3, normal speech, moving all extremities Psych: Appropriate mood and affect Course Vital Signs Vital signs: Vital Signs Temperature 36.7 C 12/13/23 12:37 Pulse 90 12/13/23 12:37 Respiratory Rate 16 12/13/23 12:37 Blood Pressure 153/71 H 12/13/23 12:37 Pulse Oximetry 98 12/13/23 12:37 Temperature 36.7 C 12/13/23 12:37 Temperature Source Oral 12/13/23 12:37 Pulse 90 12/13/23 12:37 Respiratory Rate 16 12/13/23 12:37 Blood Pressure 153/71 H 12/13/23 12:37 Pulse Oximetry 98 12/13/23 12:37 Oxygen Delivery Method Room Air 12/13/23 12:37 Oxygen Flow Rate 0 12/13/23 12:37 Pain Level 2 12/13/23 12:37 Comment 8/10 back pain w/ movement 12/13/23 12:37 Medical Decision Making 73-year-old female presents with 3 days of loose stool, orange diarrhea multiple episodes predominantly in the evening, associate with aminal cramping and excessive flatulence, resolved nausea and vomiting, of note multiple family members with similar symptomatology. No recent travel no recent antibiotic use, no recent hospitalization. Consider likely viral gastroenteritis versus enteritis versus colitis versus diverticulitis lower suspicion for appendicitis. No evidence of dehydration at this time. However given age symptomatology will repeat labs and obtain CT imaging abdomen and pelvis. Fluids analgesia anti- inflammatory antiemetics close reassessment likely home with close follow-up 14: 52 patient was comfortably no acute distress. Labs and imaging largely unremarkable. Nonperitoneal nontoxic. Patient has not had a bowel movement during her stay. Likely resolving gastroenteritis. Home care instructions and return precautions given Quality:[facility] Related Social Needs: No Data to Display PFS All Active Problems (Updated 12/13/23 @ 14:53 by Janak Walls MD) Gastroenteritis (Acute) Nausea vomiting and diarrhea (Acute) Fatigue (Acute) Dry skin (Acute) Balance disorder (Acute) Neck pain (Acute) Skin lesion (Acute) right axilla Sebaceous cyst (Acute) 06/2020 - posterior neck Right knee pain (Acute) Status post hip replacement (Acute 05/31/14) Status post rotator cuff repair (Acute) Status post total knee replacement (Acute) GERD (gastroesophageal reflux disease) (Acute) Osteoarthritis of right hip (Acute 10/07/15) Injured in March. Initially thought dislocated imaging ruled out. Is treated by Juan Fuentes. Pain and arthralgia have totally resolved at this point and she feels the joint is strong. Continue to monitor. 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 She walks with crutches. Onychomycosis (Acute) Increased BMI (Acute) Disorder characterized by back pain (Acute) MRI [place] (Lumbar) 01/04/18 - Mild low lumbar DJD, exagerated lordosis, and gentle scoliosis. No fx or masses. L3-L5 disc bulging, facet arthropathy; no large disc extrusions or limiting central canal stenosis.Suspected unilateral L5 pars interarticularis defect w/stress-related edema or a stress Fx w/edema propagating into the pedicle. Medical History Sinusitis, acute Injury of clavicle (08/25/06) Headache Only occasional at this point. Well controlled. Surgical History History of bilateral ligation of fallopian tubes History of section Status post unilateral knee replacement Ligation of fallopian tube Rotator Cuff Repair (~2006) and labrium Total replacement of hip LEFT section X2 Arthroplasty of knee 03/14/14; [facility]; RIGHT TKR Family History Mother , age 70 Lung cancer Father , age 70 Diabetes Essential hypertension Hyperlipidemia Stroke Brother , age 65 Cancer of head Primary cancer of sternum Lung cancer Liver cancer Maternal Grandfather , age 69 Liver cirrhosis Alcohol abuse Paternal Grandfather , age 43 Heart disease Maternal Grandmother Leukemia Paternal Grandmother , age 92 No problems noted. Son No problems noted. Daughter Asthma sports induced Social History Smoking/Tobacco Use Status: Never Second Hand Exposure: Yes Smoking risk assessment performed?: Yes Alcohol Intake: never Drug use: Never Substance use type: does not use Counseling given: No Counseling provided: none Caregiver/Support person: No Household members: spouse Housing: house Communication Needs: None Do you need help understanding health information?: Rarely Pets and animals: No Sexually active: No Do you think of yourself as: straight/heterosexual Current gender identity: female What is your relationship status?: How often do you talk on the phone with friends or family?: three or more times per week How often do you get together with friends or relatives?: three or more times per week How often do you attend confucianist or orthodoxy services?: decline to answer Do you belong to any clubs or organized social groups?: no Panel score (0-1 are the most socially isolated patients): 2 What type of physical activity do you participate in: walking and bicycling Duration: 30-45 minutes/day Frequency: 5-6 times per week Roselia/Mormon: No preference Special roselia needs: No Seatbelt use: always Helmet use: Yes Helmet use: sometimes Drive 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
[2023-12-13 13:25] LABS: Abs Immature Grans 0.02 10^3/uL (0.0-0.06); HGB 14.4 g/dL (11.2-15.7); MCH 29.1 pg (27.0-33.0); MCHC 33.5 % (32.0-36.0); MCV 87 fL (80-95); Platelet Count 199 10^3/uL (130-400); RBC 4.94 10^6/uL (3.93-5.22); RDW 12.9 % (11.7-14.6); WBC 6.79 10^3/uL (4.4-10.8)
[2023-12-13] MEDS: Ketorolac 15 MG/ML VIAL IVP (13:35)
[2023-12-13] MEDS: Normal Saline 1,000 ML 1000 ML IV (13:35)
[2023-12-13] MEDS: Famotidine 20 MG/2 ML VIAL IVP (13:36)
[2023-12-13] MEDS: Ondansetron 4 MG/2 ML VIAL IVP (13:36)
[2023-12-13 13:39] LABS: Absolute Basophil Count 0.07 10^3/uL (0.0-0.2); Absolute Lymphocyte Count 1.77 10^3/uL (1.2-3.4); Absolute Monocyte Count 0.75 10^3/uL (0.1-0.8); Absolute Neutrophil Count 4.01 10^3/uL (1.2-6.7); Atypical Lymphocytes % 5
[2023-12-13 13:40] LABS: Diff Comment Manual Differential; RBC Morphology Normal
[2023-12-13 13:51] LABS: ALT 22 U/L (14-59); AST 22 U/L (15-37); Albumin 3.7 g/dL (3.4-5.0); Alkaline Phosphatase 75 U/L (46-116); Anion Gap 12.4 mmol/L (3-11); BUN 12 mg/dL (7-18); Bilirubin, Total 0.5 mg/dL (0.2-1.0); CO2 23.6 mmol/L (21.0-32.0); CREATININE 0.9 mg/dL (0.55-1.02); Calcium 9.3 mg/dL (8.5-10.1); Chloride 103 mmol/L (98-107); Estimated GFR 68.35 (mL/min/1.73m2); Glucose 91 mg/dL (74-106); Lipase 37 U/L (16-77); Potassium 3.7 mmol/L (3.5-5.1); Sodium 139 mmol/L (136-145); TSH (W/Ref FT4) 2.37 uIU/mL (0.36-3.74); Total Protein 7.5 g/dL (6.4-8.2)
[2023-12-13] MEDS: Normal Saline - Diluent 50 ML VIAL IJ (14:06)
[2023-12-13] MEDS: Omnipaque 350 MG/ML 100 ML BTL IJ (14:07)
--- NOTE | 2023-12-13 15:02 | NUR.NOTE ---
Pt. unable to produce a stool sample, provider advised just d/c her home and send the stuff she needs to collect it at home and drop it off white collection hat, cup, tongue blade, biohazard bag and pt label given to pt for home stool collection and d/c to home
== END 2023-12-13 15:01 | disposition home or self-care (01) ==
PROVIDERS: Emergency Provider Emergency Medicine; PCP Nurse Practitioner Family
DX: K52.9 Noninfective gastroenteritis and colitis, unspecified (principal); Z86.12 Personal history of poliomyelitis
CPT/HCPCS: 36415; 80053; 83690; 96361; 96374; 96375; 99285; 74177; 84443; 85025; 99284; J1885; J2405; J3490

== ENCOUNTER 2024-02-26 20:22 | Inpatient (IN) | payer MEDICARE, BC, SELFPAY ==
[2024-02-26] VITALS (31 sets, daily range): BP systolic 116–156; BP diastolic 46–67; PULSE 74–94; RESP 11–23; TEMP 36.4–36.6; O2SAT 90–97
--- NOTE | 2024-02-26 20:15 | RT.EKG_ITS ---
APPROVED REPORT Exam: Resting ECG Reason for Exam: chest pain Patient Location: E HR:89 bpm ECG Measurements Heart Rate 89 AXIS AZ 144 P 55 QRSd 93 QRS 12 QT 365 T 36 QTc 445 Conclusion Sinus rhythm. normal axis 89 no stemi
[2024-02-26 20:38] LABS: Abs Immature Grans 0.04 10^3/uL (0.0-0.06); Absolute Basophil Count 0.07 10^3/uL (0.0-0.2); Absolute Eosinophil Count 0.08 10^3/uL (0.0-0.7); Absolute Lymphocyte Count 1.83 10^3/uL (1.2-3.4); Absolute Monocyte Count 0.92 10^3/uL (0.1-0.8); Absolute Neutrophil Count 7.49 10^3/uL (1.2-6.7); Basophils % 0.7 %; Eosinophils % 0.8 %; HCT 43.9 % (36.0-46.0); HGB 14.5 g/dL (11.2-15.7); Immature Grans % 0.4 %; Lymphocytes % 17.5 %; MCH 29.4 pg (27.0-33.0); MCV 89 fL (80-95); MPV 9.7 fL (8.0-11.0); Monocytes % 8.8 %; Neutrophils % 71.8 %; Platelet Count 237 10^3/uL (130-400); RBC 4.94 10^6/uL (3.93-5.22); RDW 13.2 % (11.7-14.6); RDW-SD 43.3 fL; WBC 10.43 10^3/uL (4.4-10.8)
[2024-02-26] MEDS: nitroGLYcerin 0.4 MG TAB SL ×3 (20:44→21:11)
[2024-02-26] MEDS: Aspirin 81 MG CHEW 324 MG CH (20:44)
--- NOTE | 2024-02-26 20:45 | DI.RAD_ITS ---
Exam(s) XR ELBOW LT COMPLETE EXAM: XR ELBOW LT COMPLETE CLINICAL HISTORY: left elbow pain. TECHNIQUE: 2D digital imaging was performed of the left elbow. Three images were obtained. AP, lat eral and oblique views were obtained. COMPARISON: No exams were available for comparison FINDINGS: BONES: No acute fracture is present. No bony destructive lesion is seen. JOINTS: The elbow is normally aligned. No joint effusion is seen. SOFT TISSUE: There is mild soft tissue swelling medially. IMPRESSION: No acute fracture or dislocation. DATA REPOSITORY: RADIATION DOSE DELIVERED:
--- NOTE | 2024-02-26 20:45 | DI.RAD_ITS ---
Exam(s) XR PORTABLE CHEST AP EXAM: XR PORTABLE CHEST AP CLINICAL HISTORY: chest pain TECHNIQUE: 2D digital imaging was performed of the chest. One image was obtained. An AP view was ob tained. COMPARISON: CR CHEST 2 VIEWS PA,LAT from 07/02/2010 FINDINGS: MEDIASTINUM: Normal. HEART: Normal. PULMONARY VASCULATURE: Normal. LUNGS: Clear. PLEURAL SPACE: No pleural effusion or pneumothorax. BONE:Within normal limits for the patient's age. OTHER FINDINGS:Normal. IMPRESSION: No acute pulmonary findings. DATA REPOSITORY: RADIATION DOSE DELIVERED:
--- NOTE | 2024-02-26 20:55 | ED.GENADUL_ITS ---
Discharge Plan Disposition Patient Disposition: Transfer-Acute Inpatient Care Condition: Fair Discharge Details Clinical Impression: Traumatic ecchymosis of left elbow, Acute non-ST elevation myocardial infarction (NSTEMI), Chest pain Primary Care Provider: Romain Hester ED Provider: John Quigley Home Meds and New Rx's Prescriptions: No Action chlorzoxazone 500 mg tablet 500 mg PO QID PRN (Reason: pain) Qty: 30 1RF All Day Allergy (cetirizine) 10 mg capsule 10 mg PO DAILY Qty: 90 3RF ondansetron 4 mg tablet,disintegrating 4 mg PO Q8H PRN (Reason: nausea and vomiting) Qty: 30 0RF Hold Instructions: Pt Stopped/Never Started HPI General Date/Time Provider Initiated Documentation: 02/26/24 20:24 . Limitations to Documentation: no limitations . Information obtained by: patient . HPI Narrative: 73-year-old female with past medical history of polio, hip replacement, presents for evaluation of acute onset chest pain. She reports that she was running through her yard to turn off the water because there is a leak in her house. She states when she returned she started feeling chest pressure. She describes substernal chest pressure. She states it feels heavy like someone is sitting on her. It started around 8:00 this evening and has been constant. Describes it as 8 out of 10. She states that she does feel some discomfort in her left arm, but she hurt her elbow earlier this week and so she is not sure if that is the cause of her pain. She does report some coughing and some mild shortness of breath. Related Data Home Medications Medication Instructions Recorded Confirmed chlorzoxazone 500 mg tablet 500 mg PO QID PRN pain #30 tabs 01/19/23 02/26/24 cetirizine 10 mg capsule (All Day 10 mg PO DAILY #90 caps 11/17/23 02/26/24 Allergy (cetirizine)) ondansetron 4 mg disintegrating 4 mg PO Q8H PRN nausea and 12/10/23 02/26/24 tablet vomiting #30 tabs Previous Rx's Medication Instructions Recorded chlorzoxazone 500 mg tablet 500 mg PO QID PRN pain #30 tabs 01/19/23 cetirizine 10 mg capsule (All Day 10 mg PO DAILY #90 caps 11/17/23 Allergy (cetirizine)) ondansetron 4 mg disintegrating 4 mg PO Q8H PRN nausea and 12/10/23 tablet vomiting #30 tabs Allergies Allergy/AdvReac Type Severity Reaction Status Date / Time CERTAIN ODORS Allergy Mild COUGH, Uncoded 02/26/24 21:51 SNEEZES General Stated Complaint: Chest Pain GERARDO: 3 Exam Narrative Exam Narrative: Review of Systems: All systems reviewed & are unremarkable except as noted in HPI and below Well-developed, appears uncomfortable NCAT PERRL, normal conjunctiva RRR no murmur Unlabored respiratory effort, clear bilaterally, no crackles No chest wall tenderness Nondistended abdomen , soft, nontender Extremities: no cyanosis, no edema Left elbow with bruising noted, no effusion, full range of motion No rashes or lesions. no focal neurologic deficits Appropriate mood and affect Course Vital Signs Vital signs: Vital Signs Temperature 36.4 C L 02/26/24 20:26 Pulse 90 02/26/24 20:26 Respiratory Rate 20 02/26/24 20:26 Blood Pressure 156/61 H 02/26/24 20:26 Pulse Oximetry 96 02/26/24 20:26 Temperature 36.4 C L 02/26/24 20:26 Temperature Source Oral 02/26/24 20:26 Pulse 85 02/26/24 20:51 Pulse 85 02/26/24 20:51 Respiratory Rate 16 02/26/24 20:51 Respiratory Effort Normal 02/26/24 20:30 Respiratory Depth Normal 02/26/24 20:30 Respiratory Pattern Normal 02/26/24 20:30 Blood Pressure 137/67 02/26/24 20:51 Blood Pressure Mean 86 02/26/24 20:51 Blood Pressure Position Sitting 02/26/24 20:26 Pulse Oximetry 93 02/26/24 20:51 Oxygen Delivery Method Room Air 02/26/24 20:26 Oxygen Flow Rate 0 02/26/24 20:26 Pain Level 7 02/26/24 20:51 Lab/Test Results Lab/Test Results: Laboratory Tests Range/Units 02/26/24 20:31 WBC (4.4-10.8) 10^3/uL 10.43 RBC (3.93-5.22) 10^6/uL 4.94 Hgb (11.2-15.7) g/dL 14.5 Hct (36.0-46.0) % 43.9 MCV (80-95) fL 89 MCH (27.0-33.0) pg 29.4 MCHC (32.0-36.0) % 33.0 RDW (11.7-14.6) % 13.2 Plt Count (130-400) 10^3/uL 237 MPV (8.0-11.0) fL 9.7 Immature Gran % % 0.4 Neutrophils % % 71.8 Lymphocytes % % 17.5 Monocytes % % 8.8 Eosinophils % % 0.8 Basophils % % 0.7 Nucleated RBC % (0.0-0.3) % 0.0 Absolute Neutrophils (1.2-6.7) 10^3/uL 7.49 H Absolute Lymphocytes (1.2-3.4) 10^3/uL 1.83 Absolute Monocytes (0.1-0.8) 10^3/uL 0.92 H Absolute Eosinophils (0.0-0.7) 10^3/uL 0.08 Absolute Basophils (0.0-0.2) 10^3/uL 0.07 Medical Decision Making Emergent evaluation of chest pain. Chest pain in the setting of exertion. EKG reviewed, sinus 89, normal axis, no significant ST segment changes. Non-smo ker, no diabetes, hypertension or medications for these. History is concerning that the patient does not have any significant cardiac risk factors. No family history. She is having some cough, but no significant shortness of breath or dyspnea. Although she does have some mobility issues, I feel that she is otherwise still low risk for PE as she still gets around well with crutches. Will give aspirin, nitro for chest pain relief. Chest pain workup. 2109 Troponin resulted critical level. 258. Patient has received 4 doses of sublingual nitroglycerin and reports resolution of her pain with intermittent spikes of pain. Her vital signs remained stable. Her chest x-ray is reviewed and independently interpreted, no cardiomegaly, no significant pulmonary edema or pleural effusion noted. Given her elevated troponin level, I have consulted with [facility] cardiology for transfer and further management. Heart score 6. 2130 repeat EKG without dynamic change 2199 Discussed with [facility] cardiology and concur with plan and workup. Have accepted the patient for transfer. Accepting physician Dr. Greer. At this time there is not a bed available, they report there will be a bed available tomorrow. During this time, I will admit the patient to this hospital for continued medical management of her NSTEMI. Discussed with hospitalist who is excepted to the ICU. I updated the patient on the plan of care, she reports that at this time she is still pain-free. Medical Records Medical records reviewed: Yes I reviewed the patient's medical records. Lab Data Lab results reviewed: Yes I reviewed the patient's lab results. Quality:[facility] Health Related Social Needs: No Data to Display [facility] All Active Problems (Updated 02/26/24 @ 21:22 by John Quigley MD) Chest pain (Acute) Acute non-ST elevation myocardial infarction (NSTEMI) (Acute) Traumatic ecchymosis of left elbow (Acute) Fatigue (Acute) Dry skin (Acute) Balance disorder (Acute) Neck pain (Acute) Skin lesion (Acute) right axilla Sebaceous cyst (Acute) 06/2020 - posterior neck Right knee pain (Acute) Status post hip replacement (Acute 05/31/14) Status post rotator cuff repair (Acute) Status post total knee replacement (Acute) GERD (gastroesophageal reflux disease) (Acute) Osteoarthritis of right hip (Acute 10/07/15) Injured in March. Initially thought dislocated imaging ruled out. Is treated by Juan Fuentes. Pain and arthralgia have totally resolved at this point and she feels the joint is strong. Continue to monitor. 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 She walks with crutches. Onychomycosis (Acute) Increased BMI (Acute) Disorder characterized by back pain (Acute) MRI [place] (Lumbar) 01/04/18 - Mild low lumbar DJD, exagerated lordosis, and gentle scoliosis. No fx or masses. L3-L5 disc bulging, facet arthropathy; no large disc extrusions or limiting central canal stenosis.Suspected unilateral L5 pars interarticularis defect w/stress-related edema or a stress Fx w/edema propagating into the pedicle. Medical History Sinusitis, acute Injury of clavicle (08/25/06) Headache Only occasional at this point. Well controlled. Surgical History History of bilateral ligation of fallopian tubes History of section Status post unilateral knee replacement Ligation of fallopian tube Rotator Cuff Repair (~2006) and labrium Total replacement of hip LEFT section X2 Arthroplasty of knee 03/14/14; [facility]; RIGHT TKR Family History Mother , age 70 Lung cancer Father , age 70 Diabetes Essential hypertension Hyperlipidemia Stroke Brother , age 65 Cancer of head Primary cancer of sternum Lung cancer Liver cancer Maternal Grandfather , age 69 Liver cirrhosis Alcohol abuse Paternal Grandfather , age 43 Heart disease Maternal Grandmother Leukemia Paternal Grandmother , age 92 No problems noted. Son No problems noted. Daughter Asthma sports induced Social History Smoking/Tobacco Use Status: Never Second Hand Exposure: Yes Smoking risk assessment performed?: Yes Alcohol Intake: never Drug use: Never Substance use type: does not use Counseling given: No Counseling provided: none Caregiver/Support person: No Household members: spouse Housing: house Communication Needs: None Do you need help understanding health information?: Rarely Pets and animals: No Sexually active: No Do you think of yourself as: straight/heterosexual Current gender identity: female What is your relationship status?: How often do you talk on the phone with friends or family?: three or more times per week How often do you get together with friends or relatives?: three or more times per week How often do you attend restorationism or hoahaoism services?: decline to answer Do you belong to any clubs or organized social groups?: no Panel score (0-1 are the most socially isolated patients): 2 What type of physical activity do you participate in: walking and bicycling Duration: 30-45 minutes/day Frequency: 5-6 times per week Roselia/Islam: No preference Special roselia needs: No Seatbelt use: always Helmet use: Yes Helmet use: sometimes 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
[2024-02-26 21:00] LABS: ALT 27 U/L (14-59); AST 22 U/L (15-37); Albumin 4.3 g/dL (3.4-5.0); Alkaline Phosphatase 110 U/L (46-116); Anion Gap 9.9 mmol/L (3-11); BUN 18 mg/dL (7-18); Bilirubin, Total 0.3 mg/dL (0.2-1.0); CO2 27.1 mmol/L (21.0-32.0); CREATININE 0.9 mg/dL (0.55-1.02); Calcium 9.4 mg/dL (8.5-10.1); Chloride 104 mmol/L (98-107); Estimated GFR 68.35 (mL/min/1.73m2); Glucose 129 mg/dL (74-106); NT-proBNP 87 pg/mL (<300); Potassium 3.8 mmol/L (3.5-5.1); Sodium 141 mmol/L (136-145); Total Protein 8.1 g/dL (6.4-8.2)
[2024-02-26 21:03] LABS: Troponin I 258 ng/L (< or =60)
[2024-02-26] MEDS: Clopidogrel 300 MG TAB 600 MG PO (21:15)
--- NOTE | 2024-02-26 21:15 | RT.EKG_ITS ---
APPROVED REPORT Exam: Resting ECG Reason for Exam: chest pain Patient Location: E HR:86 bpm ECG Measurements Heart Rate 86 AXIS UT 150 P 54 QRSd 83 QRS 8 QT 371 T 31 QTc 445 Conclusion Sinus rhythm. normal axis no stemi, no change from prior
--- NOTE | 2024-02-26 22:06 | DI.VRAD_ITS ---
PROCEDURE INFORMATION: Exam: XR Left Elbow Exam date and time: 02/26/2024 9:11 PM Age: 73 years old Clinical indication: Left; Patient HX: L elbow pain TECHNIQUE: Imaging protocol: Radiologic exam of the left elbow. Views: 3 or more views. COMPARISON: CR XR WRIST LT COMPLETE 01/19/2020 2:19 PM FINDINGS: Bones/joints: Bone mineralization is age-appropriate. There is no evidence of fracture. No evidence of dislocation. The joint spaces are adequately preserved; no significant degenerative narrowing and no bony erosion seen. Soft tissues: No radiopaque foreign body present. There is soft tissue swelling present. IMPRESSION: 1. No acute osseous abnormality. 2. There is soft tissue swelling present. Dictated and Authenticated by: Jerardo Garcia MD. Ordering:JESSEE Howell MD
[2024-02-26 22:15] LABS: PTT Activated 25.1 sec (23.6-32.8); Prothrombin Time 9.8 sec (9.1-11.1)
--- NOTE | 2024-02-26 22:18 | DI.VRAD_ITS ---
PROCEDURE INFORMATION: Exam: XR Chest Exam date and time: 02/26/2024 9:10 PM Age: 73 years old Clinical indication: Other: Chest pain TECHNIQUE: Imaging protocol: Radiologic exam of the chest. Views: 1 view. COMPARISON: CT thorax abd/pel CTA 11/19/2018 2:12 PM FINDINGS: Lungs: There is no evidence of focal pulmonary consolidation. The pulmonary vasculature is normal. Pleural spaces: There is no evidence of pneumothorax. There are no pleural effusions present. Heart/Mediastinum: The cardiac silhouette is within normal limits. The mediastinum is normal. Bones/joints: The spine, sternum, ribs, and pectoral girdles show no evidence of acute abnormality Soft tissues: There are no soft tissue masses or calcifications. IMPRESSION: No active cardiopulmonary disease. Dictated and Authenticated by: Jerardo Garcia MD. Ordering:JESSEE Howell MD
--- NOTE | 2024-02-26 22:21 | W.PC.ACHO ---
Registration Status: REG ER Primary Language: Preferred Language: Amharic ED Information & Data Chief Complaint Chest Pain 02/26/24 20:58 Triage Note 7 of 10 non-radiating 02/26/24 20:26 pressure-like pain in the center of the PT's chest started 1999 this evening. Pain started after some physical activity. Medical / Surgical History (Last Reviewed 02/26/24 @ 21:19 by John Quigley MD) Sinusitis, acute Injury of clavicle (08/25/06) Headache (Last Reviewed 02/26/24 @ 21:19 by John Quigley MD) History of bilateral ligation of fallopian tubes History of section Status post unilateral knee replacement Ligation of fallopian tube Rotator Cuff Repair (~2006) Total replacement of hip section Arthroplasty of knee Most Recent Vital Signs Temperature 36.4 C L 02/26/24 20:26 Temperature Source Oral 02/26/24 20:26 Pulse 85 02/26/24 21:01 Pulse 86 02/26/24 21:10 Respiratory Rate 18 02/26/24 21:10 Respiratory Effort Normal 02/26/24 20:30 Respiratory Depth Normal 02/26/24 20:30 Respiratory Pattern Normal 02/26/24 20:30 Blood Pressure 130/64 02/26/24 21:01 Blood Pressure Mean 84 02/26/24 21:01 Blood Pressure Position Sitting 02/26/24 20:26 Pulse Oximetry 94 02/26/24 21:10 Oxygen Delivery Method Room Air 02/26/24 20:26 Oxygen Flow Rate 0 02/26/24 20:26 Pain Level 7 02/26/24 20:51 Allergies CERTAIN ODORS Allergy (Mild, Uncoded 02/26/24 21:51) COUGH, SNEEZES Active Medications Generic Name Dose Route Start Last Admin Trade Name Freq PRN Reason Stop Dose Admin Nitroglycerin 0.4 mg 02/26/24 20:33 02/26/24 21:11 Nitroglycerin 0.4 Mg Tab SL 0.4 mg Q5 MIN PRN X3 PRN Administration IV IV Catheter Type [Right Saline Lock Antecubital] IV Catheter Gauge [Right 18 Antecubital] Diagnostics 02/26/24 02/26/24 Range/Units 23:33 20:31 WBC 10.43 (4.4-10.8) 10^3/uL RBC 4.94 (3.93-5.22) 10^6/uL Hgb 14.5 (11.2-15.7) g/dL Hct 43.9 (36.0-46.0) % MCV 89 (80-95) fL MCH 29.4 (27.0-33.0) pg MCHC 33.0 (32.0-36.0) % RDW 13.2 (11.7-14.6) % Plt Count 237 (130-400) 10^3/uL MPV 9.7 (8.0-11.0) fL Immature Gran % 0.4 % Neutrophils % 71.8 % Lymphocytes % 17.5 % Monocytes % 8.8 % Eosinophils % 0.8 % Basophils % 0.7 % Nucleated RBC % 0.0 (0.0-0.3) % Absolute Neutrophils 7.49 H (1.2-6.7) 10^3/uL Absolute Lymphocytes 1.83 (1.2-3.4) 10^3/uL Absolute Monocytes 0.92 H (0.1-0.8) 10^3/uL Absolute Eosinophils 0.08 (0.0-0.7) 10^3/uL Absolute Basophils 0.07 (0.0-0.2) 10^3/uL PT 9.8 (9.1-11.1) sec INR 1.0 (0.9-1.1) APTT 25.1 (23.6-32.8) sec Sodium 141 (136-145) mmol/L Potassium 3.8 (3.5-5.1) mmol/L Chloride 104 (98-107) mmol/L Carbon Dioxide 27.1 (21.0-32.0) mmol/L Anion Gap 9.9 (3-11) mmol/L BUN 18 (7-18) mg/dL Creatinine 0.9 (0.55-1.02) mg/dL Est GFR (CKD-EPI 2020) 68.35 (mL/min/1.73m2) Glucose 129 H (74-106) mg/dL Calcium 9.4 (8.5-10.1) mg/dL Magnesium 2.0 (1.8-2.4) mg/dL Total Bilirubin 0.3 (0.2-1.0) mg/dL AST 22 (15-37) U/L ALT 27 (14-59) U/L Alkaline Phosphatase 110 (46-116) U/L Troponin I Pending 258 H* (< or =60) ng/L NT-Pro-B Natriuret Pep 87 (<300) pg/mL Total Protein 8.1 (6.4-8.2) g/dL Albumin 4.3 (3.4-5.0) g/dL Intake and Output - 24 Hour Total 02/26/24 20:22 thru 02/26/24 20:26 Weight 79.7 kg Falls Risk Assessment History of Falls No History 02/26/24 20:30 Contributing Factors No Factors 02/26/24 20:30 Ambulatory Aids Independent 02/26/24 20:30 Tubes/Lines None 02/26/24 20:30 Gait Evaluation No gait disturbance 02/26/24 20:30 Cognition No cognitive impairment 02/26/24 20:30 Fall Total Score 0 02/26/24 20:30 Level of Risk Standard/Low Risk 02/26/24 20:30 v v v v v v v v v Sending and/or Receiving Nurses: Please use comment section below to note any information pertinent to the patient hand-off not included above. Information / Comments: Report received from: LUIS Hand
--- NOTE | 2024-02-26 22:24 | NUR.NOTE ---
called for report at 2650. RN will call back.
--- NOTE | 2024-02-26 22:35 | W.PC.ACHO ---
Registration Status: REG ER Primary Language: Preferred Language: Swedish ED Information & Data Chief Complaint Chest Pain 02/26/24 20:58 Triage Note 7 of 10 non-radiating 02/26/24 20:26 pressure-like pain in the center of the PT's chest started 1999 this evening. Pain started after some physical activity. Medical / Surgical History (Last Reviewed 02/26/24 @ 21:19 by John Quigley MD) Sinusitis, acute Injury of clavicle (08/25/06) Headache (Last Reviewed 02/26/24 @ 21:19 by John Quigley MD) History of bilateral ligation of fallopian tubes History of section Status post unilateral knee replacement Ligation of fallopian tube Rotator Cuff Repair (~2006) Total replacement of hip section Arthroplasty of knee Most Recent Vital Signs Temperature 36.4 C L 02/26/24 22:31 Temperature Source Oral 02/26/24 20:26 Pulse 78 02/26/24 22:31 Pulse 79 02/26/24 22:21 Respiratory Rate 13 02/26/24 22:31 Respiratory Effort Normal 02/26/24 20:30 Respiratory Depth Normal 02/26/24 20:30 Respiratory Pattern Normal 02/26/24 20:30 Blood Pressure 127/63 02/26/24 22:31 Blood Pressure Mean 86 02/26/24 22:21 Blood Pressure Position Sitting 02/26/24 20:26 Pulse Oximetry 94 02/26/24 22:31 Oxygen Delivery Method Room Air 02/26/24 20:26 Oxygen Flow Rate 0 02/26/24 20:26 Pain Level 7 02/26/24 20:51 Allergies CERTAIN ODORS Allergy (Mild, Uncoded 02/26/24 21:51) COUGH, SNEEZES Active Medications Generic Name Dose Route Start Last Admin Trade Name Freq PRN Reason Stop Dose Admin Nitroglycerin 0.4 mg 02/26/24 20:33 02/26/24 21:11 Nitroglycerin 0.4 Mg Tab SL 0.4 mg Q5 MIN PRN X3 PRN Administration IV IV Catheter Type [Right Saline Lock Antecubital] IV Catheter Gauge [Right 18 Antecubital] Diagnostics 02/26/24 02/26/24 Range/Units 23:33 20:31 WBC 10.43 (4.4-10.8) 10^3/uL RBC 4.94 (3.93-5.22) 10^6/uL Hgb 14.5 (11.2-15.7) g/dL Hct 43.9 (36.0-46.0) % MCV 89 (80-95) fL MCH 29.4 (27.0-33.0) pg MCHC 33.0 (32.0-36.0) % RDW 13.2 (11.7-14.6) % Plt Count 237 (130-400) 10^3/uL MPV 9.7 (8.0-11.0) fL Immature Gran % 0.4 % Neutrophils % 71.8 % Lymphocytes % 17.5 % Monocytes % 8.8 % Eosinophils % 0.8 % Basophils % 0.7 % Nucleated RBC % 0.0 (0.0-0.3) % Absolute Neutrophils 7.49 H (1.2-6.7) 10^3/uL Absolute Lymphocytes 1.83 (1.2-3.4) 10^3/uL Absolute Monocytes 0.92 H (0.1-0.8) 10^3/uL Absolute Eosinophils 0.08 (0.0-0.7) 10^3/uL Absolute Basophils 0.07 (0.0-0.2) 10^3/uL PT 9.8 (9.1-11.1) sec INR 1.0 (0.9-1.1) APTT 25.1 (23.6-32.8) sec Sodium 141 (136-145) mmol/L Potassium 3.8 (3.5-5.1) mmol/L Chloride 104 (98-107) mmol/L Carbon Dioxide 27.1 (21.0-32.0) mmol/L Anion Gap 9.9 (3-11) mmol/L BUN 18 (7-18) mg/dL Creatinine 0.9 (0.55-1.02) mg/dL Est GFR (CKD-EPI 2020) 68.35 (mL/min/1.73m2) Glucose 129 H (74-106) mg/dL Calcium 9.4 (8.5-10.1) mg/dL Magnesium 2.0 (1.8-2.4) mg/dL Total Bilirubin 0.3 (0.2-1.0) mg/dL AST 22 (15-37) U/L ALT 27 (14-59) U/L Alkaline Phosphatase 110 (46-116) U/L Troponin I Pending 258 H* (< or =60) ng/L NT-Pro-B Natriuret Pep 87 (<300) pg/mL Total Protein 8.1 (6.4-8.2) g/dL Albumin 4.3 (3.4-5.0) g/dL Intake and Output - 24 Hour Total 02/26/24 20:22 thru 02/26/24 20:26 Weight 79.7 kg Falls Risk Assessment History of Falls No History 02/26/24 20:30 Contributing Factors No Factors 02/26/24 20:30 Ambulatory Aids Independent 02/26/24 20:30 Tubes/Lines None 02/26/24 20:30 Gait Evaluation No gait disturbance 02/26/24 20:30 Cognition No cognitive impairment 02/26/24 20:30 Fall Total Score 0 02/26/24 20:30 Level of Risk Standard/Low Risk 02/26/24 20:30 Notes 02/26/24 22:24 Nursing Notes by Maximilian Marin called for report at 2220. RN will call back. Initialized on 02/26/24 22:24 - END OF NOTE v v v v v v v v v Sending and/or Receiving Nurses: Please use comment section below to note any information pertinent to the patient hand-off not included above. Information / Comments: Report received from:Beverley Barroso Parametic (ER) report at 2231 Charlie Marin RN and all questions asked and answered.
--- NOTE | 2024-02-26 22:45 | RT.EKG_ITS ---
APPROVED REPORT Exam: Resting ECG Reason for Exam: CP, NSTEMI Patient Location: I HR:75 bpm ECG Measurements Heart Rate 75 AXIS AL 62 P 63 QRSd 106 QRS -3 QT 406 T 32 QTc 454 Conclusion Sinus rhythm...normal P axis, V-rate 50- 99 Low voltage, precordial leads...precordial leads <1.0mV
--- NOTE | 2024-02-26 22:46 | HPE_ITS ---
Date of service: 02/26/24 Time of Service: 22:47 Assessment and Plan Assessment and plan (1) Acute non-ST elevation myocardial infarction (NSTEMI): Status: Acute Assessment and plan: heparin drip and bolus, DAPT, iv NTG, atorvastatin; check lipid panel and glycohemoglobin A1C; transfer to [facility] in the morning or sooner if she becomes unstable. She does not have signs or symptoms of acute CHF and therefore POCUS not done as it will not assist in management tonight. To be transferred to service of Dr. Greer at [facility] when bed becomes available. 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 No associated diaphoresis, nausea, abdominal pain or radiation of CP to her arms, back or neck or jaw. Symptoms totally relieved w/ 2 SL NTG. EKG did not show any acute ST elevation or depression. Rhythm NSR. However 1st troponin I was elevated at 258 ng/L. 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 Dr. Dann E.D. provider called [facility] cardiology and began the patient on Plavix and ASA, patient was suppose to be started on heparin drip but this was never done in the E.D. I inquired as to whether or not they were going to start heparin but Dr. Quigley communicated to me that [facility] cards advised against starting nitroglycerin drip as this might mask her chest pain. Patient was accepted for transfer to [facility] to service of Dr. Greer, however, d/t lack of bed availability tonight, we are requested to admit her to [facility] overnight. After arrival to the ICU, the patient experience more chest heaviness she rated a 2/10, again no radiation, no dyspnea, nausea or diaphoresis. Repeat EKG was done and again demonstrates NSR 72 bpm, no ischemic ST-T changes. NTG drip will be started now and titrated to relief of chest pain and heparin drip will be started along w/ a bolus and serial troponin levels will be done. Coronary risk factors: FH (father w/ AR in his 60's w/ PCI, stroke in his 70's), negative for HTN, DM, CHOL, or smoking. Review of Systems All systems reviewed & are unremarkable except as noted in HPI and below PFSH All Active Problems Chest pain (Acute) Acute non-ST elevation myocardial infarction (NSTEMI) (Acute) Traumatic ecchymosis of left elbow (Acute) Fatigue (Acute) Dry skin (Acute) Balance disorder (Acute) Neck pain (Acute) Skin lesion (Acute) right axilla Sebaceous cyst (Acute) 06/2020 - posterior neck Right knee pain (Acute) Status post hip replacement (Acute 05/31/14) Status post rotator cuff repair (Acute) Status post total knee replacement (Acute) GERD (gastroesophageal reflux disease) (Acute) Osteoarthritis of right hip (Acute 10/07/15) Injured in March. Initially thought dislocated imaging ruled out. Is treated by Juan Fuentes. Pain and arthralgia have totally resolved at this point and she feels the joint is strong. Continue to monitor. 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 She walks with crutches. Onychomycosis (Acute) Increased BMI (Acute) Disorder characterized by back pain (Acute) MRI [place] (Lumbar) 01/04/18 - Mild low lumbar DJD, exagerated lordosis, and gentle scoliosis. No fx or masses. L3-L5 disc bulging, facet arthropathy; no large disc extrusions or limiting central canal stenosis.Suspected unilateral L5 pars interarticularis defect w/stress-related edema or a stress Fx w/edema propagating into the pedicle. Medical History Sinusitis, acute Injury of clavicle (08/25/06) Headache Only occasional at this point. Well controlled. Surgical History (Updated 02/26/24 @ 23:35 by Dwayne Childs MD) History of bilateral ligation of fallopian tubes History of section Status post unilateral knee replacement Ligation of fallopian tube Rotator Cuff Repair (~2006) and labrium Total replacement of hip LEFT and RIGHT section X2 Arthroplasty of knee 03/14/14; [facility]; RIGHT TKR Family History Mother , age 70 Lung cancer Father , age 70 Diabetes Essential hypertension Hyperlipidemia Stroke Brother , age 65 Cancer of head Primary cancer of sternum Lung cancer Liver cancer Maternal Grandfather , age 69 Liver cirrhosis Alcohol abuse Paternal Grandfather , age 43 Heart disease Maternal Grandmother Leukemia Paternal Grandmother , age 92 No problems noted. Son No problems noted. Daughter Asthma sports induced Social History Smoking/Tobacco Use Status: Never Second Hand Exposure: Yes Smoking risk assessment performed?: Yes Alcohol Intake: never Drug use: Never Substance use type: does not use Counseling given: No Counseling provided: none Caregiver/Support person: No Household members: spouse Housing: house Communication Needs: None Do you need help understanding health information?: Rarely Pets and animals: No Sexually active: No Do you think of yourself as: straight/heterosexual Current gender identity: female What is your relationship status?: How often do you talk on the phone with friends or family?: three or more times per week How often do you get together with friends or relatives?: three or more times per week How often do you attend synagogue or rastafarian services?: decline to answer Do you belong to any clubs or organized social groups?: no Panel score (0-1 are the most socially isolated patients): 2 What type of physical activity do you participate in: walking and bicycling Duration: 30-45 minutes/day Frequency: 5-6 times per week Roselia/Restoration: No preference Special roselia needs: No Seatbelt use: always Helmet use: Yes Helmet use: sometimes Drive intox or ride w/intox armored car driver: No Do you feel safe at home: Yes Do you feel safe in your relationship?: Yes Meds Allergies and Home Medications Allergies Allergy/AdvReac Type Severity Reaction Status Date / Time CERTAIN ODORS Allergy Mild COUGH, Uncoded 02/26/24 21:51 SNEEZES Home Medications Medication Instructions Recorded Confirmed Type chlorzoxazone 500 mg tablet 500 mg PO QID PRN pain #30 tabs 01/19/23 02/26/24 Rx cetirizine 10 mg capsule (All Day 10 mg PO DAILY #90 caps 11/17/23 02/26/24 Rx Allergy (cetirizine)) ondansetron 4 mg disintegrating 4 mg PO Q8H PRN nausea and 12/10/23 02/26/24 Rx tablet vomiting #30 tabs Exam Narrative Exam Narrative: White female who wears glasses, alert and oriented, calm, pleasant, does not appear in distress despite CP of 2/10, nondiaphoretic HEENT; normal facial mimetic movement, normal tongue, teeth in fair repair, no exudate, full EOMI, normal sclera, PERRL Neck: supple, nontender, normal carotids, no adenpathy Lungs: clear to ausculatation Heart: RRR, normal S1 and S2, no murmur, rub or gallop Abdomen: nondistended, soft, nontender, no bruit, no organomegaly Extremities: discrepancy between right and left leg, left leg is smaller less developed (d/t polio), multiple scars over both legs and right knee; normal pedal pulses Results Imaging Chest x-ray: report reviewed and image reviewed EKG: report reviewed and image reviewed Labs 02/26/24 20:31 02/26/24 20:31 Labs: Laboratory Results - last 24 hr 02/26/24 20:31 WBC 10.43 RBC 4.94 Hgb 14.5 Hct 43.9 MCV 89 MCH 29.4 MCHC 33.0 RDW 13.2 Plt Count 237 MPV 9.7 Immature Gran % 0.4 Neutrophils % 71.8 Lymphocytes % 17.5 Monocytes % 8.8 Eosinophils % 0.8 Basophils % 0.7 Nucleated RBC % 0.0 Absolute Neutrophils 7.49 H Absolute Lymphocytes 1.83 Absolute Monocytes 0.92 H Absolute Eosinophils 0.08 Absolute Basophils 0.07 PT 9.8 INR 1.0 APTT 25.1 Sodium 141 Potassium 3.8 Chloride 104 Carbon Dioxide 27.1 Anion Gap 9.9 BUN 18 Creatinine 0.9 Est GFR (CKD-EPI 2020) 68.35 Glucose 129 H Calcium 9.4 Magnesium 2.0 Total Bilirubin 0.3 AST 22 ALT 27 Alkaline Phosphatase 110 Troponin I 258 H* NT-Pro-B Natriuret Pep 87 Total Protein 8.1 Albumin 4.3 Last Vital Signs Temp 36.4 C L 02/26/24 22:31 Pulse 78 02/26/24 22:31 Resp 13 02/26/24 22:31 BP 127/63 02/26/24 22:31 Pulse Ox 94 02/26/24 22:31 Time Spent Time spent with Patient: 55-74 minutes Time was spent: preparing to see the patient(eg.review tests), obtaining and/or reviewing separately otained hiistory, ordering medications,tests, procedures, referring, communicating with other health medicare sales executive, indepentently interpreting results, counseling the patient and care coordination
[2024-02-26] MEDS: Heparin in 0.45% NaCl 25,000 UNIT/250 ML BAG 10 UNIT IV (22:50)
[2024-02-26] MEDS: nitroGLYcerin in D5W 50 MG/250 ML BTL IV (22:50)
[2024-02-26] MEDS: Normal Saline Flush 10 ML SYR IVP (23:47)
[2024-02-26 23:58] LABS: Troponin I 603 ng/L (< or =60)
[2024-02-27] VITALS (37 sets, daily range): BP systolic 112–133; BP diastolic 59–72; PULSE 65–82; RESP 6–29; TEMP 36.5–36.9; O2SAT 93–97
[2024-02-27 02:26] LABS: Troponin I 656 ng/L (< or =60)
[2024-02-27 05:40] LABS: Hemoglobin A1C 5.8 % (<5.7)
[2024-02-27 05:42] LABS: Calculated LDL 85 mg/dL (<100); Cholesterol 167 mg/dL (<200); HDL Cholesterol 72 mg/dL (40-60); Triglyceride 52 mg/dL (<150)
[2024-02-27 05:46] LABS: Troponin I 614 ng/L (< or =60)
[2024-02-27 05:48] LABS: PTT Activated 86.4 sec (23.6-32.8)
--- NOTE | 2024-02-27 07:51 | W.PM.DS.N ---
Date of service: 02/27/24 Time of Service: 07:52 DS: Diagnosis Discharge Diagnosis (1) Acute non-ST elevation myocardial infarction (NSTEMI): Status: Acute Asessment and Plan: Patient initially presented with chest pain that was ultimately determined to be due to NSTEMI with elevated troponin, but no EKG changes. Patient has been on heparin, and nitro drip without any worsening of chest pain or associated cardiac symptoms. Ultimately, that was made available and she was determined to be stable for transfer to [facility] for left heart catheterization. Discharge Plan Disposition Patient Disposition: Transfer-Acute Inpatient Care Specific Acute Inpt Facility: [facility] Condition: Good Discharge Details Reason For Visit: NSTEMI Admit Date/Time: 02/26/24 21:57 Admit Provider: Dwayne Childs Attending Provider: Dwayne Childs [place] [facility] [place] Hospital Course: Patient initially presented with chest pain that was ultimately determined to be due to NSTEMI with elevated troponin, but no EKG changes. Patient has been on heparin, and nitro drip without any worsening of chest pain or associated cardiac symptoms. Ultimately, that was made available and she was determined to be stable for transfer to [facility] for left heart catheterization. Home Meds and New Rx's Prescriptions: No Action chlorzoxazone 500 mg tablet 500 mg PO QID PRN (Reason: pain) Qty: 30 1RF All Day Allergy (cetirizine) 10 mg capsule 10 mg PO DAILY Qty: 90 3RF ondansetron 4 mg tablet,disintegrating 4 mg PO Q8H PRN (Reason: nausea and vomiting) Qty: 30 0RF Hold Instructions: Pt Stopped/Never Started Discharge Instructions Activity:: Activity as Tolerated Equipment/Supplies:: No Equipment Needed Diet:: As Tolerated Discharge Orders Discharge Orders: Discharge Order (Routine); Ordered 02/27/24 Ordered By: Emmanuel oMrrison DS: Summary Time Spent with Patient providing and/or coordinating discharge services: Greater than 30 minutes Status at Discharge Functional status at discharge: independent ambulation Overall status at discharge: patient is back to baseline Mental Status: mental status grossly normal Speech and Movement: speech and movement normal Mood: congruent mood Affect: normal affect Quality:SDOH Health Related Social Needs: Health related social needs details N/A Health related social needs details: N/A Referrals and interventions: None needed Exam Narrative Exam Narrative: Well-appearing female laying in bed in no acute distress, ANO x 4, heart regular rate rhythm, lungs clear to auscultation bilaterally, abdomen soft, nontender, nondistended Psych Mental Status: mental status grossly normal Speech and Movement: speech and movement normal Mood: congruent mood Affect: normal affect DS: Data Vitals/I&O Vitals and I&O: Vital Signs Temperature 98.4 F 02/27/24 07:11 Temperature Source Temporal Artery Scan 02/27/24 07:11 Pulse 74 02/27/24 07:02 Pulse 70 02/27/24 07:02 Respiratory Rate 11 L 02/27/24 07:02 Respiratory Effort Normal 02/27/24 07:11 Respiratory Depth Normal 02/27/24 07:11 Respiratory Pattern Normal 02/27/24 07:11 Blood Pressure 122/64 02/27/24 07:02 Blood Pressure Mean 82 02/27/24 07:02 Blood Pressure Position Supine 02/27/24 03:02 Pulse Oximetry 97 02/27/24 07:02 Oxygen Delivery Method Room Air 02/27/24 03:02 Oxygen Flow Rate 0 02/27/24 03:02 Pain Level 1 02/26/24 23:14 Intake & Output 02/26/24 02/27/24 02/27/24 17:59 05:59 17:59 Intake Total 84.958 / 84.958 Output Total 875 / 875 Balance -790.042 / -790.042 Weight 173 lb 1.006 oz 172 lb 9.951 oz Intake: IV 84.958 / 84.958 Output: Urine 875 / 875 Other: Urine Color Light Carolyn Urine Appearance Clear Urine Odor None Voiding Methods Bedside Commode Data Completed and Pending Labs on day of discharge: Labs from last 24 hours 02/27/24 02/27/24 02/27/24 11:00 05:10 02:00 WBC RBC Hgb Hct MCV MCH MCHC RDW Plt Count MPV Immature Gran % Neutrophils % Lymphocytes % Monocytes % Eosinophils % Basophils % Nucleated RBC % Absolute Neutrophils Absolute Lymphocytes Absolute Monocytes Absolute Eosinophils Absolute Basophils PT INR APTT Pending 86.4 H* Sodium Potassium Chloride Carbon Dioxide Anion Gap BUN Creatinine Est GFR (CKD-EPI 2020) Glucose Hemoglobin A1c 5.8 H Calcium Magnesium Total Bilirubin AST ALT Alkaline Phosphatase Troponin I Pending 614 H* 656 H* NT-Pro-B Natriuret Pep Total Protein Albumin Triglycerides 52 Total Cholesterol 167 LDL Cholesterol, Calc 85 HDL Cholesterol 72 02/27/24 02/26/24 02/26/24 01:48 23:35 20:31 WBC 10.43 RBC 4.94 Hgb 14.5 Hct 43.9 MCV 89 MCH 29.4 MCHC 33.0 RDW 13.2 Plt Count 237 MPV 9.7 Immature Gran % 0.4 Neutrophils % 71.8 Lymphocytes % 17.5 Monocytes % 8.8 Eosinophils % 0.8 Basophils % 0.7 Nucleated RBC % 0.0 Absolute Neutrophils 7.49 H Absolute Lymphocytes 1.83 Absolute Monocytes 0.92 H Absolute Eosinophils 0.08 Absolute Basophils 0.07 PT 9.8 INR 1.0 APTT 25.1 Sodium 141 Potassium 3.8 Chloride 104 Carbon Dioxide 27.1 Anion Gap 9.9 BUN 18 Creatinine 0.9 Est GFR (CKD-EPI 2020) 68.35 Glucose 129 H Hemoglobin A1c Calcium 9.4 Magnesium Cancelled 2.0 Total Bilirubin 0.3 AST 22 ALT 27 Alkaline Phosphatase 110 Troponin I 603 H* 258 H* NT-Pro-B Natriuret Pep 87 Total Protein 8.1 Albumin 4.3 Triglycerides Total Cholesterol LDL Cholesterol, Calc HDL Cholesterol PFSH All Active Problems Chest pain (Acute) Acute non-ST elevation myocardial infarction (NSTEMI) (Acute) Traumatic ecchymosis of left elbow (Acute) Fatigue (Acute) Dry skin (Acute) Balance disorder (Acute) Neck pain (Acute) Skin lesion (Acute) right axilla Sebaceous cyst (Acute) 06/2020 - posterior neck Right knee pain (Acute) Status post hip replacement (Acute 05/31/14) Status post rotator cuff repair (Acute) Status post total knee replacement (Acute) GERD (gastroesophageal reflux disease) (Acute) Osteoarthritis of right hip (Acute 10/07/15) Injured in March. Initially thought dislocated imaging ruled out. Is treated by Juna Fuentes. Pain and arthralgia have totally resolved at this point and she feels the joint is strong. Continue to monitor. 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 She walks with crutches. Onychomycosis (Acute) Increased BMI (Acute) Disorder characterized by back pain (Acute) MRI [place] (Lumbar) 01/04/18 - Mild low lumbar DJD, exagerated lordosis, and gentle scoliosis. No fx or masses. L3-L5 disc bulging, facet arthropathy; no large disc extrusions or limiting central canal stenosis.Suspected unilateral L5 pars interarticularis defect w/stress-related edema or a stress Fx w/edema propagating into the pedicle. Medical History Sinusitis, acute Injury of clavicle (08/25/06) Headache Only occasional at this point. Well controlled. Surgical History (Updated 02/26/24 @ 23:35 by Dwayne Childs MD) History of bilateral ligation of fallopian tubes History of section Status post unilateral knee replacement Ligation of fallopian tube Rotator Cuff Repair (~2006) and labrium Total replacement of hip LEFT and RIGHT section X2 Arthroplasty of knee 03/14/14; [facility]; RIGHT TKR Family History Mother , age 70 Lung cancer Father , age 70 Diabetes Essential hypertension Hyperlipidemia Stroke Brother , age 65 Cancer of head Primary cancer of sternum Lung cancer Liver cancer Maternal Grandfather , age 69 Liver cirrhosis Alcohol abuse Paternal Grandfather , age 43 Heart disease Maternal Grandmother Leukemia Paternal Grandmother , age 92 No problems noted. Son No problems noted. Daughter Asthma sports induced Social History Smoking/Tobacco Use Status: Never Second Hand Exposure: Yes Smoking risk assessment performed?: Yes Alcohol Intake: never Drug use: Never Substance use type: does not use Counseling given: No Counseling provided: none Caregiver/Support person: No Household members: spouse Housing: house Communication Needs: None Do you need help understanding health information?: Rarely Pets and animals: No Sexually active: No Do you think of yourself as: straight/heterosexual Current gender identity: female What is your relationship status?: How often do you talk on the phone with friends or family?: three or more times per week How often do you get together with friends or relatives?: three or more times per week How often do you attend judaism or orthodox services?: decline to answer Do you belong to any clubs or organized social groups?: no Panel score (0-1 are the most socially isolated patients): 2 What type of physical activity do you participate in: walking and bicycling Duration: 30-45 minutes/day Frequency: 5-6 times per week Roselia/Church: No preference Special roselia needs: No Seatbelt use: always Helmet use: Yes Helmet use: sometimes Drive intox or ride w/intox feedmobile driver: No Do you feel safe at home: Yes Do you feel safe in your relationship?: Yes Time Spent with Patient Time Spent with Patient: <45 minutes Time was spent: preparing to see the patient(eg.review tests), obtaining and/or reviewing separately otained hiistory, ordering medications,tests, procedures, referring, communicating with other health hospice spiritual care coordinator, indepentently interpreting results, counseling the patient and care coordination
--- NOTE | 2024-02-27 08:38 | PDOC.CMDIS ---
Date of service: 02/27/24 Time of Service: 08:38 LACE Index Scoring Tool Questions: Length of Stay (in days): 1 Was the patient admitted via the E.D.?: Yes E.D. Visits: 3 Answers: Total Score: 7 Risk of Readmission: Low Risk Care Management Discharge Plan Reason for Hospitalization: NSTEMI Discharge Plan: Marlen was transferred to [facility] via EMS Patient/Family Education Needs: Review transfer instructions and limitations with patient and family. Services Needed at Discharge: Transportation (EMS coordinated by RN leak gang supervisor) SDOH Health Related Social Needs: Health related social needs details N/A Health related social needs details: N/A Referrals and interventions: None needed
== END 2024-02-27 08:05 | disposition short-term general hospital (02) | DRG 282 ==
LOC: ER 21:21 → ICU 22:49
PROVIDERS: Admitting Provider Internal Medicine; Emergency Provider Emergency Medicine; PCP Nurse Practitioner Family; Visit Provider Internal Medicine
DX: I21.4 Non-ST elevation (NSTEMI) myocardial infarction (principal); G14 Postpolio syndrome; K21.9 Gastro-esophageal reflux disease without esophagitis; R53.83 Other fatigue; M47.816 Spondylosis without myelopathy or radiculopathy, lumbar region; E55.9 Vitamin D deficiency, unspecified; Z96.643 Presence of artificial hip joint, bilateral; Z96.651 Presence of right artificial knee joint
CPT/HCPCS: 00123; 36415; 80053; 80061; 93005; 99291; 71045; 73080; 83036; 83735; 83880; 84484; 85025; 85610; 85730; 93010; 99238; J1644; J2305

== ENCOUNTER 2024-09-28 01:40 | Outpatient (CLI) | payer MEDICARE, BC, SELFPAY ==
[2024-09-28] MEDS: Inhaler, Assist Device 1 EACH MC (16:19)
[2024-09-28] MEDS: Levalbuterol HFA 15 GM INH 4 PUFF IH (16:19)
--- NOTE | 2024-10-08 09:53 | W.PFT ---
Date of service: 09/28/24 Time of Service: 15:01 Pulmonary Function Test Result Indications: Cough Interpretation Spirometry: No airflow limitation. No bronchodilator response. Lung Volumes: Normal lung volumes Diffusion Capacity: Normal diffusion Airway Pressure: Normal airways resistance Impression Normal pulmonary function testing Clinical Correlation therefore is recommended.
== END 2024-09-28 01:41 | disposition home or self-care (01) ==
LOC: RT 01:40
PROVIDERS: PCP Nurse Practitioner Family; Visit Provider Student in an Organized Health Care Education/Training Program
DX: R05.9 Cough, unspecified (principal)
CPT/HCPCS: 94060; 94726; 94729

== ENCOUNTER 2024-10-22 01:47 | Outpatient (CLI) | payer MEDICARE, BC, SELFPAY ==
--- NOTE | 2024-10-22 08:25 | DI.MAMMO_ITS ---
Exam(s) MAMMO SCREENING EXAM: MAMMO SCREENING CLINICAL HISTORY: screening,Z12.39 TECHNIQUE: Bilateral full field digital CC and MLO mammographic images were obtained with 3D tomosyn thesis and utilizing computer aided detection (CAD). COMPARISON: Available for comparison. FINDINGS: Masses/Architectural Distortion: None seen. Microcalcifications: No suspicious pleomorphic-type are seen. Skin Thickening/Nipple Retraction: None. IMPRESSION: 1. No significant interval change with no specific features of malignancy noted. 2. Unless there is more urgent need, screening mammography is recommended, as per [place] guidelines. BI-RADS Category 1 - Negative Breast Density - Category B - Scattered areas of fibroglandular density Breast density category C or D implies that the patient has dense breast tissue. Dense breast tissue is very common and is not abnormal but dense breast tissue can make it harder to find cancer on a ma mmogram. Also, dense breast tissue may increase their breast cancer risk. This information about the result of the mammogram report was provided to the patient to raise their awareness. Use this report when you speak with the patient about their risks for breast cancer, which includes their family hist ory. At that time, you may recommend for more screening tests (Ultrasound or MRI) as they might be us eful based on their risk. A negative radiographic report should not delay biopsy if a dominant or clinically suspicious mass is present. Up to ten percent of cancers are not identified on mammography. A negative report may reinforce clinical impression. Adenosis and dense breasts may obscure an underlying neoplasm. False positive reports average 6 to 10%. Patient will receive a letter notifying them of these results.
== END 2024-10-22 02:07 ==
LOC: DI 01:47
PROVIDERS: PCP Nurse Practitioner Family; Visit Provider Nurse Practitioner Family
DX: Z12.31 Encounter for screening mammogram for malignant neoplasm of breast (principal); R92.323 Mammographic fibroglandular density, bilateral breasts
CPT/HCPCS: 77063; 77067

== ENCOUNTER 2024-11-12 02:07 | Outpatient (CLI) | payer MEDICARE, BC, SELFPAY ==
[2024-11-13 10:16] LABS: Hepatitis C Ab w Rflx HCV PCR Negative (Negative)
[2024-11-13 12:02] LABS: Albumin 61.9 % (55.8-66.1); Albumin g/dL 4.3 g/dL (3.6-5.2); Total Protein 6.9 g/dL (6.3-8.2)
== END 2024-11-12 02:08 | disposition home or self-care (01) ==
LOC: LOS 02:08
PROVIDERS: PCP Nurse Practitioner Family; Visit Provider Nurse Practitioner Family
DX: Z11.59 Encounter for screening for other viral diseases (principal); R53.83 Other fatigue
CPT/HCPCS: 36415; 86803; 84165

== ENCOUNTER 2025-04-05 13:15 | Outpatient (CLI) | payer MEDICARE, BC, SELFPAY ==
--- NOTE | 2025-04-05 13:00 | DI.RAD_ITS ---
Exam(s) XR CHEST 2V PA LATERAL EXAM: XR CHEST 2V PA LATERAL CLINICAL HISTORY: reactive airway, exposed to smoke on 03/28,dyspnea,r06.00. TECHNIQUE: 2D digital imaging was performed. COMPARISON: CR,XR XR PORTABLE CHEST AP from 02/26/2024 FINDINGS: 2 views: Heart size is normal. The mediastinum is not widened. Lungs are clear. No infiltrates nor pleural effusions. IMPRESSION: No acute pulmonary findings. DATA REPOSITORY: RADIATION DOSE DELIVERED:
== END 2025-04-05 13:35 ==
LOC: DI 13:16
PROVIDERS: PCP Nurse Practitioner Family; Visit Provider Nurse Practitioner Family
DX: R06.00 Dyspnea, unspecified (principal)
CPT/HCPCS: 71046

== ENCOUNTER 2025-04-13 14:30 | Outpatient (CLI) | payer MEDICARE, BC, SELFPAY ==
--- NOTE | 2025-04-13 14:30 | RT.EKG_ITS ---
APPROVED REPORT Exam: Resting ECG Reason for Exam: tachycardia Patient Location: O HR:114 bpm ECG Measurements Heart Rate 114 AXIS AR 127 P 22 QRSd 84 QRS -2 QT 340 T 32 QTc 469 Conclusion Sinus tachycardia...rate> 99 Otherwise normal ECG
== END 2025-04-13 14:31 | disposition home or self-care (01) ==
LOC: DI.CM 14:30
PROVIDERS: PCP Nurse Practitioner Family; Visit Provider Nurse Practitioner Family
DX: R00.0 Tachycardia, unspecified (principal); R06.02 Shortness of breath
CPT/HCPCS: 93010

== ENCOUNTER 2025-04-13 15:07 | Emergency (ER) | payer MEDICARE, BC, SELFPAY ==
[2025-04-13] VITALS (33 sets, daily range): BP systolic 110–147; BP diastolic 45–86; PULSE 73–125; RESP 14–26; TEMP 38–39.3; O2SAT 93–97
--- NOTE | 2025-04-13 15:30 | RT.EKG_ITS ---
APPROVED REPORT Exam: Resting ECG Reason for Exam: sob Patient Location: E HR:102 bpm ECG Measurements Heart Rate 102 AXIS WY 129 P 52 QRSd 83 QRS 16 QT 347 T 51 QTc 453 Conclusion Sinus tachycardia 102 normal axis no stemi
--- NOTE | 2025-04-13 15:30 | DI.RAD_ITS ---
Exam(s) XR PORTABLE CHEST AP EXAM: XR PORTABLE CHEST AP CLINICAL HISTORY: Cough TECHNIQUE: 2D digital imaging was performed of the chest. One image was obtained. An AP view was obtained. COMPARISON: CR,XR XR PORTABLE CHEST AP from 02/26/2024 CR XR CHEST 2V PA LATERAL from 04/05/2025 FINDINGS: MEDIASTINUM: Normal. HEART: Normal. PULMONARY VASCULATURE: Normal. LUNGS: Clear. PLEURAL SPACE: No pleural effusion or pneumothorax. BONE:Within normal limits for the patient's age. OTHER FINDINGS:Normal. IMPRESSION: 1. No acute pulmonary findings. 2. The preliminary [facility] report was reviewed. DATA REPOSITORY: RADIATION DOSE DELIVERED:
[2025-04-13] MEDS: ACETAMINOPHEN 1,000 MG/100 ML BAG 400 MG IVPB (15:48)
[2025-04-13 15:55] LABS: Abs Immature Grans 0.13 10^3/uL (0.0-0.06); HCT 37.1 % (36.0-46.0); HGB 12.5 g/dL (11.2-15.7); Immature Grans % 0.8 %; MCH 28.8 pg (27.0-33.0); MCHC 33.7 % (32.0-36.0); MCV 86 fL (80-95); MPV 9.5 fL (8.0-11.0); Platelet Count 238 10^3/uL (130-400); RBC 4.34 10^6/uL (3.93-5.22); RDW 13.2 % (11.7-14.6); RDW-SD 41.1 fL; WBC 16.14 10^3/uL (4.4-10.8)
[2025-04-13 16:20] LABS: Troponin I < 4 ng/L (<or=51)
[2025-04-13 16:23] LABS: ALT 22 U/L (14-59); AST 17 U/L (15-37); Albumin 3.4 g/dL (3.4-5.0); Alkaline Phosphatase 88 U/L (46-116); Anion Gap 12.5 mmol/L (3-11); BUN 15 mg/dL (7-18); Bilirubin, Total 0.7 mg/dL (0.2-1.0); CO2 22.5 mmol/L (21.0-32.0); Calcium 9.1 mg/dL (8.5-10.1); Chloride 100 mmol/L (98-107); Estimated GFR 91.83 (mL/min/1.73m2); Glucose 115 mg/dL (74-106); Magnesium 2.0 mg/dL (1.8-2.4); NT-proBNP 86 pg/mL (<300); Potassium 3.7 mmol/L (3.5-5.1); Sodium 135 mmol/L (136-145); Total Protein 7.2 g/dL (6.4-8.2)
[2025-04-13 16:33] LABS: Procalcitonin < 0.10 ng/mL
--- NOTE | 2025-04-13 16:45 | DI.[facility]_ITS ---
PROCEDURE INFORMATION: Exam: XR Chest Exam date and time: 04/13/2025 3:52 PM Age: 74 years old Clinical indication: Cough TECHNIQUE: Imaging protocol: Radiologic exam of the chest. Views: 1 view. COMPARISON: CR XR CHEST 2V PA LATERAL 04/05/2025 1:32 PM FINDINGS: Lungs: Unremarkable. No consolidation. Pleural spaces: Unremarkable. No pleural effusion. No pneumothorax. Heart/Mediastinum: Unremarkable. No cardiomegaly. Vasculature: Aortic calcifications. Bones/joints: Degenerative arthritis in the shoulders and spine. IMPRESSION: No acute findings in Dictated and Authenticated by: Candy Molina MD. Orderin Dann Howell MD
[2025-04-13 17:29] LABS: COVID-19 PCR Negative (Negative); RSV PCR Negative (Negative)
[2025-04-13] MEDS: Ibuprofen 600 MG TAB PO (17:44)
[2025-04-13 17:47] LABS: Glucose Negative (Negative)
[2025-04-13 17:56] LABS: C & S Indicated? Yes
[2025-04-13] MEDS: predniSONE 20 MG TAB 60 MG PO (18:08)
[2025-04-13] MEDS: cefTRIAXone 1 GM/50 ML BAG IVPB (18:08)
--- NOTE | 2025-04-13 19:20 | ED.GENADUL_ITS ---
Discharge Plan Disposition Patient Disposition: Home Discharge Details Clinical Impression: Fever, Shortness of breath, Cough Primary Care Provider: Romain Hester ED Provider: John Quigley Home Meds and New Rx's Prescriptions: New prednisone 20 mg tablet 40 mg PO DAILY 4 Days Qty: 8 0RF doxycycline hyclate 100 mg capsule 100 mg PO BID 7 Days Qty: 14 0RF No Action albuterol sulfate 90 mcg/actuation HFA aerosol inhaler 2 puff inhalation Q6H PRN (Reason: shortness of breath or wheezing) Qty: 8.5 0RF All Day Allergy (cetirizine) 10 mg capsule 10 mg PO DAILY Qty: 90 3RF chlorzoxazone 500 mg tablet 500 mg PO QID PRN (Reason: pain) Qty: 30 1RF methylprednisolone 4 mg tablets,dose pack 4 mg PO ONCE Patient Comments: TAKE PER PACKAGE INSTRUCTIONS FOR 6 DAYS Discharge Instructions Additional Instructions: ED workup has been reassuring. No signs of sepsis or overwhelming infection. You have had blood cultures drawn and first dose of IV antibiotics has been given. Will treat for atypical pneumonia with doxycycline. Take medication as prescribed. Continue your inhaler as needed. Continue the steroids as p rescribed as well. Return to the emergency department with worsening symptoms, shortness of breath, chest pain or hypoxia. Follow-up with your primary care provider. HPI General Date/Time Provider Initiated Documentation: 04/13/25 15:30 . Limitations to Documentation: no limitations . Information obtained by: patient . HPI Narrative: 74-year-old female with past medical history of CAD, asthma presents for og luation of shortness of breath. She reports that she has been having fever and chills for the last 4 days at home with increased shortness of breath and cough. Cough is nonproductive she does report improvement with her inhaler. She reports that her symptoms initially started around March 29 when she was exposed to some burning wood. She states that she is typically very sensitive to this. Other than the shortness of breath she does not have any other symptoms like sore throat, abdominal pain, vomiting, dysuria. No rashes or lesions. No known tick bites. Related Data Home Medications ?Medication ?Instructions ?Recorded ?Confirmed chlorzoxazone 500 mg tablet 500 mg PO QID PRN pain #30 tabs 07/06/24 04/13/25 cetirizine 10 mg capsule (All Day 10 mg PO DAILY #90 c aps 09/25/24 04/13/25 Allergy (cetirizine)) albuterol sulfate 90 mcg/actuation 2 puff inhalation Q 6H PRN 01/08/25 04/13/25 aerosol inhaler shortness of breath or wheez ing #8.5 grams doxycycline hyclate 100 mg capsule 100 mg PO BID 7 day s #14 caps 04/13/25 methylprednisolone 4 mg tablets in 4 mg PO ONCE sob 04/13/25 a dose pack prednisone 20 mg tablet 40 mg (2 x 20 mg) PO DAILY 4 days 04/13/25 #8 tabs Previous Rx's ?Medication ?Instructions ?Recorded chlorzoxazone 500 mg tablet 500 mg PO QID PRN pain #30 tabs 07/06/24 cetirizine 10 mg capsule (All Day 10 mg PO DAILY #90 c aps 09/25/24 Allergy (cetirizine)) albuterol sulfate 90 mcg/actuation 2 puff inhalation Q 6H PRN 01/08/25 aerosol inhaler shortness of breath or wheez ing #8.5 grams doxycycline hyclate 100 mg capsule 100 mg PO BID 7 day s #14 caps 04/13/25 prednisone 20 mg tablet 40 mg (2 x 20 mg) PO DAILY 4 days 04/13/25 #8 tabs Allergies Allergy/AdvReac Type Severity Reaction Status Date / Time [place] Allergy Severe Anaphylaxis Verified 04/13/25 15:21 CERTAIN ODORS Allergy Mild COUGH, Uncoded 04/13/25 13:29 SNEEZES General Stated Complaint: SOB GERARDO: 3 Exam Narrative Exam Narrative: Review of Systems: All systems reviewed & are unremarkable except as noted in HPI and below Well-developed, no acute distress febrile NCAT PERRL, normal conjunctiva posterior OP without erythema, no cervical adenopathy RRR, no murmur Unlabored respiratory effort, no hypoxia/wheezing, CTAB Nondistended abdomen , soft nt Extremities w/o edema No rashes or lesions. no focal neurologic deficits Appropriate mood and affect Course Vital Signs Vital signs: Vital Signs Temperature 39.3 C H 04/13/25 15:13 Pulse 125 H 04/13/25 15:13 Respiratory Rate 26 H 04/13/25 15:13 Blood Pressure 147/83 H 04/13/25 15:13 Pulse Oximetry 95 04/13/25 15:13 Temperature 38.0 C H 04/13/25 16:19 Temperature Source Oral 04/13/25 16:19 Pulse 83 04/13/25 18:20 Pulse 83 04/13/25 18:20 Respiratory Rate 19 04/13/25 18:20 Respiratory Effort Short of Breath 04/13/25 16:16 Respiratory Depth Normal 04/13/25 16:16 Respiratory Pattern Normal 04/13/25 16:16 Blood Pressure 132/58 L 04/13/25 18:16 Blood Pressure Mean 82 04/13/25 18:16 Blood Pressure Position Sitting 04/13/25 15:13 Pulse Oximetry 94 04/13/25 18:20 Oxygen Delivery Method Room Air 04/13/25 15:13 Oxygen Flow Rate 0 04/13/25 15:13 Lab/Test Results Lab/Test Results: 04/13/25 17:36 Urine - Reflex from Ua Urine Culture - Pending 04/13/25 17:00 Blood Blood Culture - Pending 04/13/25 15:43 Blood Blood Culture - Pending Laboratory Tests Range/Units 04/13/25 04/13/25 04/13/25 15:43 16:31 16:49 WBC (4.4-10.8) 10^3/uL 16.14 H RBC (3.93-5.22) 10^6/uL 4.34 Hgb (11.2-15.7) g/dL 12.5 Hct (36.0-46.0) % 37.1 MCV (80-95) fL 86 MCH (27.0-33.0) pg 28.8 MCHC (32.0-36.0) % 33.7 RDW (11.7-14.6) % 13.2 Plt Count (130-400) 10^3/uL 238 MPV (8.0-11.0) fL 9.5 Immature Gran % % 0.8 Neutrophils % % 82.7 Lymphocytes % % 6.9 Monocytes % % 9.3 Eosinophils % % 0.1 Basophils % % 0.2 Nucleated RBC % (0.0-0.3) % 0.0 Absolute Neutrophils (1.2-6.7) 10^3/uL 13.35 H Absolute Lymphocytes (1.2-3.4) 10^3/uL 1.11 L Absolute Monocytes (0.1-0.8) 10^3/uL 1.50 H Absolute Eosinophils (0.0-0.7) 10^3/uL 0.02 Absolute Basophils (0.0-0.2) 10^3/uL 0.03 VBG Lactate (<or=2.0) mmol/L 1.2 Sodium (136-145) mmol/L 135 L Potassium (3.5-5.1) mmol/L 3.7 Chloride (98-107) mmol/L 100 Carbon Dioxide (21.0-32.0) mmol/L 22.5 Anion Gap (3-11) mmol/L 12.5 H BUN (7-18) mg/dL 15 Creatinine (0.55-1.02) mg/dL 0.7 Est GFR (CKD-EPI 2020) (mL/min/1.73m2) 91.83 Glucose (74-106) mg/dL 115 H Calcium (8.5-10.1) mg/dL 9.1 Magnesium (1.8-2.4) mg/dL 2.0 Total Bilirubin (0.2-1.0) mg/dL 0.7 AST (15-37) U/L 17 ALT (14-59) U/L 22 Alkaline Phosphatase (46-116) U/L 88 Troponin I (<or=51) ng/L < 4 Cancelled NT-Pro-B Natriuret Pep (<300) pg/mL 86 Total Protein (6.4-8.2) g/dL 7.2 Albumin (3.4-5.0) g/dL 3.4 Procalcitonin ng/mL < 0.10 Urine Color (Yellow) Urine Clarity (Clear) Urine pH (5-8) Ur Specific [place] (1.005-1.025) Urine Protein (Neg-Trace) mg/dL Urine Ketones (Negative) mg/dL Urine Blood (Negative) Urine Nitrite (Negative) Urine Bilirubin (Negative) Urine Urobilinogen (Up to 0.2) mg/dL Ur Leukocyte Esterase (Negative) Urine RBC (0-2) HPF Urine WBC (0-5) HPF Ur Epithelial Cells (Negative) HPF Urine Crystals (Negative) HPF Urine Bacteria (Negative) HPF Urine Casts (Negative) LPF Urine Mucus (Negative) Ur Culture Indicated? Urine Glucose (Negative) mg/dL COVID-19 Source Nasopharynx SARS-CoV-2 (PCR) (Negative) Negative Influenza Type A (PCR) (Negative) Negative Influenza Type B (PCR) (Negative) Negative RSV (PCR) (Negative) Negative Range/Units 04/13/25 04/13/25 17:36 18:31 WBC (4.4-10.8) 10^3/uL RBC (3.93-5.22) 10^6/uL Hgb (11.2-15.7) g/dL Hct (36.0-46.0) % MCV (80-95) fL MCH (27.0-33.0) pg MCHC (32.0-36.0) % RDW (11.7-14.6) % Plt Count (130-400) 10^3/uL MPV (8.0-11.0) fL Immature Gran % % Neutrophils % % Lymphocytes % % Monocytes % % Eosinophils % % Basophils % % Nucleated RBC % (0.0-0.3) % Absolute Neutrophils (1.2-6.7) 10^3/uL Absolute Lymphocytes (1.2-3.4) 10^3/uL Absolute Monocytes (0.1-0.8) 10^3/uL Absolute Eosinophils (0.0-0.7) 10^3/uL Absolute Basophils (0.0-0.2) 10^3/uL VBG Lactate (<or=2.0) mmol/L Sodium (136-145) mmol/L Potassium (3.5-5.1) mmol/L Chloride (98-107) mmol/L Carbon Dioxide (21.0-32.0) mmol/L Anion Gap (3-11) mmol/L BUN (7-18) mg/dL Creatinine (0.55-1.02) mg/dL Est GFR (CKD-EPI 2020) (mL/min/1.73m2) Glucose (74-106) mg/dL Calcium (8.5-10.1) mg/dL Magnesium (1.8-2.4) mg/dL Total Bilirubin (0.2-1.0) mg/dL AST (15-37) U/L ALT (14-59) U/L Alkaline Phosphatase (46-116) U/L Troponin I (<or=51) ng/L Cancelled NT-Pro-B Natriuret Pep (<300) pg/mL Total Protein (6.4-8.2) g/dL Albumin (3.4-5.0) g/dL Procalcitonin ng/mL Urine Color (Yellow) Yellow Urine Clarity (Clear) Clear Urine pH (5-8) 6.0 Ur Specific [place] (1.005-1.025) <= 1.005 Urine Protein (Neg-Trace) mg/dL Negative Urine Ketones (Negative) mg/dL Trace H Urine Blood (Negative) Moderate H Urine Nitrite (Negative) Negative Urine Bilirubin (Negative) Negative Urine Urobilinogen (Up to 0.2) mg/dL 0.2 Ur Leukocyte Esterase (Negative) Moderate H Urine RBC (0-2) HPF 3-5 H Urine WBC (0-5) HPF 10-20 H Ur Epithelial Cells (Negative) HPF Rare Urine Crystals (Negative) HPF Negative Urine Bacteria (Negative) HPF Rare Urine Casts (Negative) LPF Negative Urine Mucus (Negative) Negative Ur Culture Indicated? Yes Urine Glucose (Negative) mg/dL Negative COVID-19 Source SARS-CoV-2 (PCR) (Negative) Influenza Type A (PCR) (Negative) Influenza Type B (PCR) (Negative) RSV (PCR) (Negative) Medical Decision Making Emergent evaluation of acute febrile illness. Initial differential includes pneumonia, viral illness, sepsis. Patient presents with tachycardia and fever. Medication for fever was given and the patient did defervesce with normalization in her vital signs. The patient's EKG was reviewed and independently int erpreted: Sinus 102 normal axis no acute ischemic changes. Although her symptoms include shortness of breath and cough, she has a benign pulmonary examination. The patient's lab work was reviewed, she had an elevated white blood cell count at 16, no anemia. There is left shift noted. Her lactic acid and procalcitonin are not elevated. Cardiac biomarkers are unremarkable, there is no significant derangement in her CMP. Urinalysis does not appear frankly infected though there are some white blood cells. A culture for this has been sent. Viral testing was negative. Lyme and tick panel has been sent off. At this time we will treat for atypical pneumonia given her history of asthma. Will treat with doxycycline. Steroids will be given. Recommend continued use of her albuterol inhaler. Return guidance provided and recommend close follow- up with PCP. Quality:SDOH Health Related Social Needs: Health related social needs inadequate housing materia l hardship Health related social needs details N/A PFSH All Active Problems (Updated 04/13/25 @ 17:59 by John Quigley MD) Cough (Acute) Shortness of breath (Acute) Fever (Acute) Weight loss (Acute) Dyspnea (Acute) Left shoulder pain (Acute) Acute non-ST elevation myocardial infarction (NSTEMI) (Acute) Traumatic ecchymosis of left elbow (Acute) Fatigue (Acute) Dry skin (Acute) Balance disorder (Acute) Neck pain (Acute) Skin lesion (Acute) right axilla Sebaceous cyst (Acute) 06/2020 - posterior neck Right knee pain (Acute) Status post hip replacement (Acute 05/31/14) Status post rotator cuff repair (Acute) Status post total knee replacement (Acute) GERD (gastroesophageal reflux disease) (Acute) Osteoarthritis of right hip (Acute 10/07/15) Injured in March. Initially thought dislocated imaging ruled out. Is treated by Juan Fuentes. Pain and arthralgia have totally resolved at this point and she feels the joint is strong. Continue to monitor. 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 She walks with crutches. Onychomycosis (Acute) Increased BMI (Acute) Disorder characterized by back pain (Acute) MRI [place] (Lumbar) 01/04/18 - Mild low lumbar DJD, exagerated lordosis, and gentle scoliosis. No fx or masses. L3-L5 disc bulging, facet arthropathy; no large disc extrusions or limiting central canal stenosis.Suspected unilateral L5 pars interarticularis defect w/stress-related edema or a stress Fx w/edema propagating into the pedicle. Medical History Sinusitis, acute Injury of clavicle (08/25/06) Headache Only occasional at this point. Well controlled. Surgical History History of bilateral ligation of fallopian tubes History of section Status post unilateral knee replacement Ligation of fallopian tube Rotator Cuff Repair (~2006) and labrium Total replacement of hip LEFT and RIGHT section X2 Arthroplasty of knee 03/14/14; [facility]; RIGHT TKR Family History Mother , age 70 Lung cancer Father , age 70 Diabetes Essential hypertension Hyperlipidemia Stroke Brother , age 65 Cancer of head Primary cancer of sternum Lung cancer Liver cancer Maternal Grandfather , age 69 Liver cirrhosis Alcohol abuse Paternal Grandfather , age 43 Heart disease Maternal Grandmother Leukemia Paternal Grandmother , age 92 No problems noted. Son No problems noted. Daughter Asthma sports induced Social History Smoking/Tobacco Use Status: Never Second Hand Exposure: Yes Smoking risk assessment performed?: Yes Alcohol Intake: never Drug use: Never Substance use type: does not use Counseling given: No Counseling provided: none Caregiver/Support person: No Household members: spouse Housing: house Communication Needs: None Do you need help understanding health information?: Rarely Pets and animals: No Sexually active: No Do you think of yourself as: straight/heterosexual Current gender identity: female What is your relationship status?: How often do you talk on the phone with friends or family?: three or more times per week How often do you get together with friends or relatives?: three or more times per week How often do you attend confucianism or cheondoism services?: decline to answer Do you belong to any clubs or organized social groups?: no Panel score (0-1 are the most socially isolated patients): 2 What type of physical activity do you participate in: walking and bicycling Duration: 30-45 minutes/day Frequency: 5-6 times per week Roselia/Amish: No preference Special roselia needs: No Seatbelt use: always Helmet use: Yes Helmet use: sometimes Drive intox or ride w/intox 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
--- NOTE | 2025-04-14 09:49 | NUR.NOTE ---
Accessed chart to record critical value reported by Jazlyn in lab Nursing Note:
--- NOTE | 2025-04-14 10:46 | NUR.NOTE ---
Nursing Note:Patient questioning about prescriptions
[2025-04-15 12:03] LABS: Lyme Ab w Rflx to Lyme Confirm Negative (Negative)
[2025-04-17 15:04] LABS: B. miyamotoi PCR Negative (Negative); Babesia divergens/MO-1 Negative (Negative); Ehrlichia muris eauclairensis Negative (Negative)
== END 2025-04-13 18:51 | disposition home or self-care (01) ==
PROVIDERS: Emergency Provider Emergency Medicine; PCP Nurse Practitioner Family
DX: R06.02 Shortness of breath (principal); R50.9 Fever, unspecified; R05.1 Acute cough; Z59.10 Inadequate housing, unspecified; Z59.87 Material hardship due to limited financial resources, not elsewhere classified
CPT/HCPCS: 99284 ×2; 36415; 80053; 84145; 87040; 87077; 87637; 87798; 93005; 96365; 96367; 71045; 81003; 81015; 83605; 83735; 83880; 84484; 85025; 86618; 87086; 93010; J0131; J0696; J7512

== ENCOUNTER 2025-04-14 11:47 | Observation (INO) | payer MEDICARE, BC, SELFPAY ==
[2025-04-14] VITALS (7 sets, daily range): BP systolic 111–137; BP diastolic 54–85; PULSE 69–94; RESP 16; TEMP 35.8–36.7; O2SAT 96–98
--- NOTE | 2025-04-14 12:39 | ED.GENADUL_ITS ---
Discharge Plan Disposition Patient Disposition: Admit to [facility] Condition: Stable Discharge Details Clinical Impression: Fever and chills, Atypical pneumonia, Blood culture positive Primary Care Provider: Romain Hester ED Provider: Adrienne Crum Home Meds and New Rx's Prescriptions: No Action albuterol sulfate 90 mcg/actuation HFA aerosol inhaler 2 puff inhalation Q6H PRN (Reason: shortness of breath or wheezing) Qty: 8.5 0RF All Day Allergy (cetirizine) 10 mg capsule 10 mg PO DAILY Qty: 90 3RF chlorzoxazone 500 mg tablet 500 mg PO QID PRN (Reason: pain) Qty: 30 1RF methylprednisolone 4 mg tablets,dose pack 4 mg PO ONCE Patient Comments: TAKE PER PACKAGE INSTRUCTIONS FOR 6 DAYS prednisone 20 mg tablet 40 mg PO DAILY 4 Days Qty: 8 0RF doxycycline hyclate 100 mg capsule 100 mg PO BID 7 Days Qty: 14 0RF HPI General Mode of arrival: ambulatory . Date/Time Provider Initiated Documentation: 04/14/25 11:51 . Limitations to Documentation: no limitations . Information obtained by: patient and old records reviewed . HPI Narrative: This is a 74-year-old female patient with a past medical history significant for NSTEMI, GERD, postpolio syndrome, and recent visit for fever, chills, and shortness of breath/cough concerning for pneumonia, presenting with positive blood culture. The patient was seen yesterday and discharged after a dose of ceftriaxone with a course of doxycycline and a prednisone burst. We received a call from the lab that her first aerobic bottle had popped positive for gram- positive cocci in clusters. They were not able to tell us definitively that this represented contamination given the brief duration of time since they had been drawn. The patient was contacted and states that she is continuing to have some shortness of breath, had some subjective fevers and chills, and she was counseled to return to the emergency department for reevaluation. The patient states that she took her dose of doxycycline today Related Data Home Medications ?Medication ?Instructions ?Recorded ?Confirmed chlorzoxazone 500 mg tablet 500 mg PO QID PRN pain #30 tabs 07/06/24 04/14/25 cetirizine 10 mg capsule (All Day 10 mg PO DAILY #90 c aps 09/25/24 04/14/25 Allergy (cetirizine)) albuterol sulfate 90 mcg/actuation 2 puff inhalation Q 6H PRN 01/08/25 04/14/25 aerosol inhaler shortness of breath or wheez ing #8.5 grams doxycycline hyclate 100 mg capsule 100 mg PO BID 7 day s #14 caps 04/13/25 04/14/25 methylprednisolone 4 mg tablets in 4 mg PO ONCE sob 04/14/25 a dose pack prednisone 20 mg tablet 40 mg (2 x 20 mg) PO DAILY 4 days 04/13/25 04/14/25 #8 tabs Previous Rx's ?Medication ?Instructions ?Recorded chlorzoxazone 500 mg tablet 500 mg PO QID PRN pain #30 tabs 07/06/24 cetirizine 10 mg capsule (All Day 10 mg PO DAILY #90 c aps 09/25/24 Allergy (cetirizine)) albuterol sulfate 90 mcg/actuation 2 puff inhalation Q 6H PRN 01/08/25 aerosol inhaler shortness of breath or wheez ing #8.5 grams doxycycline hyclate 100 mg capsule 100 mg PO BID 7 day s #14 caps 04/13/25 prednisone 20 mg tablet 40 mg (2 x 20 mg) PO DAILY 4 days 04/13/25 #8 tabs Allergies Allergy/AdvReac Type Severity Reaction Status Date / Time [place] Allergy Severe Anaphylaxis Verified 04/14/25 12:02 CERTAIN ODORS Allergy Mild COUGH, Uncoded 04/14/25 12:02 SNEEZES General Stated Complaint: RespSymp GERARDO: 3 Exam Narrative Exam Narrative: Gen: Awake and alert, in no apparent distress HEENT: Non-icteric sclera Neck: Supple Lungs: No apparent respiratory distress, normal respiratory effort. The patient does have trace wheezes on exhalation most audible in the right base CV: Appears well perfused, heart with regular rate and rhythm, strong distal pulses Abdomen: Non-distended, soft, nontender MSK: Moves 4 extremities without apparent limitation in ROM, no peripheral edema Skin: Visualized skin without rashes, cyanosis. Neuro: Normal Gait, no obvious focal deficits or facial asymmetry. Speaks in full, clear sentences. Psych: Appropriate for situation. Course Vital Signs Vital signs: Vital Signs Temperature 36.3 C L 04/14/25 12:00 Pulse 87 04/14/25 12:00 Respiratory Rate 16 04/14/25 12:00 Blood Pressure 137/84 04/14/25 12:00 Pulse Oximetry 98 04/14/25 12:00 Temperature 36.3 C L 04/14/25 12:00 Temperature Source Oral 04/14/25 12:00 Pulse 87 04/14/25 12:00 Respiratory Rate 16 04/14/25 12:00 Blood Pressure 137/84 04/14/25 12:00 Pulse Oximetry 98 04/14/25 12:00 Oxygen Delivery Method Room Air 04/14/25 12:00 Oxygen Flow Rate 0 04/14/25 12:00 Lab/Test Results Lab/Test Results: 04/14/25 12:22 Blood Blood Culture - Pending 04/14/25 12:22 Blood Blood Culture - Pending Medical Decision Making This is a 74-year-old female patient presenting for reevaluation in the setting of a positive blood culture after recent visit for fever, chills, and shortness of breath. My differential includes but is not limited to bacteremia, certainly considered that this may in fact be a contaminant given that it was a single bottle and gram-positive cocci in clusters may represent staph skin sofya. Considered pneumonia, bronchitis, reactive airway disease exacerbation. I did reach out to the micro lab, who do not have any updates to the blood culture and unfortunately feels that we cannot state with confidence that this represents only a contaminant. For this reason, we will proceed with repeat blood cultures, and recheck labs to include CBC, CMP, magnesium, and lactate. I have provided the patient with a duo nebulizer treatment and her dose of prednisone, which she has not been able to take it today. We will also provide her with a second dose of ceftriaxone for coverage. -I independently interpreted the laboratory studies, which show an improving leukocytosis compared to yesterday's, no anemia, or thrombocytopenia. The chemistry panel is without evidence of electrolyte abnormality, kidney dysfunction, or liver injury. Troponin is negative, and lactate is not significantly elevated. I reassessed the patient and discussed options with her. I feel that if the patient had reliable transportation and felt comfortable it would not be unreasonable for her to be contacted tomorrow with updates and potentially to return for new dose of ceftriaxone. She is covered for 24 hours and has an improving leukocytosis. The patient states that she thinks she would prefer to undergo overnight observation as her is caring for the grandchildren, and this is already her second ER visit for positive cultures. I think this is quite reasonable, and discussed the case with the hospitalist who is graciously accepted her for admission to their service. She remained hemodynamically appropriate while under my care and was transferred to the floor without incident. Adrienne Crum MD Quality:SDOH Health Related Social Needs: Health related social needs inadequate housing materia l hardship Health related social needs details N/A PFSH All Active Problems (Updated 04/14/25 @ 15:19 by Adrienne Crum MD) Blood culture positive (Acute) Atypical pneumonia (Acute) Fever and chills (Acute) Viral upper respiratory illness (Acute) Positive blood culture (Acute) Cough (Acute) Shortness of breath (Acute) Fever (Acute) Weight loss (Acute) Dyspnea (Acute) Left shoulder pain (Acute) Acute non-ST elevation myocardial infarction (NSTEMI) (Acute) Traumatic ecchymosis of left elbow (Acute) Fatigue (Acute) Dry skin (Acute) Balance disorder (Acute) Neck pain (Acute) Skin lesion (Acute) right axilla Sebaceous cyst (Acute) 06/2020 - posterior neck Right knee pain (Acute) Status post hip replacement (Acute 05/31/14) Status post rotator cuff repair (Acute) Status post total knee replacement (Acute) GERD (gastroesophageal reflux disease) (Acute) Osteoarthritis of right hip (Acute 10/07/15) Injured in March. Initially thought dislocated imaging ruled out. Is treated by Juan Fuentes. Pain and arthralgia have totally resolved at this point and she feels the joint is strong. Continue to monitor. 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 She walks with crutches. Onychomycosis (Acute) Increased BMI (Acute) Disorder characterized by back pain (Acute) [facility] [place] (Lumbar) 01/04/18 - Mild low lumbar DJD, exagerated lordosis, and gentle scoliosis. No fx or masses. L3-L5 disc bulging, facet arthropathy; no large disc extrusions or limiting central canal stenosis.Suspected unilateral L5 pars interarticularis defect w/stress-related edema or a stress Fx w/edema propagating into the pedicle. Medical History Sinusitis, acute Injury of clavicle (08/25/06) Headache Only occasional at this point. Well controlled. Surgical History History of bilateral ligation of fallopian tubes History of section Status post unilateral knee replacement Ligation of fallopian tube Rotator Cuff Repair (~2006) and labrium Total replacement of hip LEFT and RIGHT section X2 Arthroplasty of knee 03/14/14; [facility]; RIGHT TKR Family History Mother , age 70 Lung cancer Father , age 70 Diabetes Essential hypertension Hyperlipidemia Stroke Brother , age 65 Cancer of head Primary cancer of sternum Lung cancer Liver cancer Maternal Grandfather , age 69 Liver cirrhosis Alcohol abuse Paternal Grandfather , age 43 Heart disease Maternal Grandmother Leukemia Paternal Grandmother , age 92 No problems noted. Son No problems noted. Daughter Asthma sports induced Social History Smoking/Tobacco Use Status: Never Second Hand Exposure: Yes Smoking risk assessment performed?: Yes Alcohol Intake: never Drug use: Never Substance use type: does not use Counseling given: No Counseling provided: none Caregiver/Support person: No Household members: spouse Housing: house Communication Needs: None Do you need help understanding health information?: Rarely Pets and animals: No Sexually active: No Do you think of yourself as: straight/heterosexual Current gender identity: female What is your relationship status?: How often do you talk on the phone with friends or family?: three or more times per week How often do you get together with friends or relatives?: three or more times per week How often do you attend restorationism or orthodoxy services?: decline to answer Do you belong to any clubs or organized social groups?: no Panel score (0-1 are the most socially isolated patients): 2 What type of physical activity do you participate in: walking and bicycling Duration: 30-45 minutes/day Frequency: 5-6 times per week Roselia/Druze: No preference Special roselia needs: No Seatbelt use: always Helmet use: Yes Helmet use: sometimes Drive intox or ride w/intox 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
[2025-04-14 12:49] LABS: Abs Immature Grans 0.07 10^3/uL (0.0-0.06); HCT 38.9 % (36.0-46.0); HGB 12.9 g/dL (11.2-15.7); Immature Grans % 0.5 %; MCH 28.5 pg (27.0-33.0); MCHC 33.2 % (32.0-36.0); MCV 86 fL (80-95); MPV 9.7 fL (8.0-11.0); Platelet Count 259 10^3/uL (130-400); RBC 4.53 10^6/uL (3.93-5.22); RDW 13.2 % (11.7-14.6); RDW-SD 41.0 fL; WBC 14.52 10^3/uL (4.4-10.8)
[2025-04-14] MEDS: predniSONE 20 MG TAB 40 MG PO (12:52)
[2025-04-14] MEDS: Albuterol/Ipratropium 3 ML UPD VIAL UPD (12:53)
[2025-04-14 13:17] LABS: ALT 24 U/L (14-59); AST 14 U/L (15-37); Albumin 3.5 g/dL (3.4-5.0); Alkaline Phosphatase 99 U/L (46-116); Anion Gap 11.9 mmol/L (3-11); BUN 20 mg/dL (7-18); Bilirubin, Total 0.4 mg/dL (0.2-1.0); CO2 24.1 mmol/L (21.0-32.0); Calcium 10.1 mg/dL (8.5-10.1); Chloride 102 mmol/L (98-107); Estimated GFR 91.83 (mL/min/1.73m2); Glucose 132 mg/dL (74-106); Magnesium 2.2 mg/dL (1.8-2.4); Potassium 3.6 mmol/L (3.5-5.1); Sodium 138 mmol/L (136-145); Total Protein 7.7 g/dL (6.4-8.2)
[2025-04-14 13:22] LABS: Troponin I < 4 ng/L (<or=51)
[2025-04-14] MEDS: cefTRIAXone 1 GM/50 ML BAG IVPB (13:33)
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
--- NOTE | 2025-04-14 15:40 | W.PC.ACHO ---
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 No ear or throat pain, no n/v/d. Here yesterday and told to come back today for abx. Medical / Surgical History (Last Reviewed 04/13/25 @ 13:48 by Annemarie Paz NP) Sinusitis, acute Injury of clavicle (08/25/06) Headache (Last Reviewed 04/13/25 @ 13:48 by Annemarie Paz NP) History of bilateral ligation of fallopian tubes History of section Status post unilateral knee replacement Ligation of fallopian tube Rotator Cuff Repair (~2006) Total replacement of hip section Arthroplasty of knee Most Recent Vital Signs Temperature 36.3 C L 04/14/25 14:41 Temperature Source Oral 04/14/25 14:41 Pulse 87 04/14/25 14:41 Respiratory Rate 16 04/14/25 14:41 Blood Pressure 137/84 04/14/25 14:41 Pulse Oximetry 98 04/14/25 14:41 Oxygen Delivery Method Room Air 04/14/25 14:41 Oxygen Flow Rate 0 04/14/25 14:41 Allergies [facility] Allergy (Severe, Verified 04/14/25 12:02) Anaphylaxis coughing sob CERTAIN ODORS Allergy (Mild, Uncoded 04/14/25 12:02) COUGH, SNEEZES IV IV Catheter Type [Right Saline Lock Antecubital] IV Catheter Gauge [Right 18 Antecubital] Diagnostics 04/14/25 04/14/25 04/14/25 Range/Units 15:23 13:23 12:40 WBC 14.52 H (4.4-10.8) 10^3/uL RBC 4.53 (3.93-5.22) 10^6/uL Hgb 12.9 (11.2-15.7) g/dL Hct 38.9 (36.0-46.0) % MCV 86 (80-95) fL MCH 28.5 (27.0-33.0) pg MCHC 33.2 (32.0-36.0) % RDW 13.2 (11.7-14.6) % Plt Count 259 (130-400) 10^3/uL MPV 9.7 (8.0-11.0) fL Immature Gran % 0.5 % Neutrophils % 83.3 % Lymphocytes % 9.1 % Monocytes % 7.0 % Eosinophils % 0.0 % Basophils % 0.1 % Nucleated RBC % 0.0 (0.0-0.3) % Absolute Neutrophils 12.10 H (1.2-6.7) 10^3/uL Absolute Lymphocytes 1.32 (1.2-3.4) 10^3/uL Absolute Monocytes 1.02 H (0.1-0.8) 10^3/uL Absolute Eosinophils 0.00 (0.0-0.7) 10^3/uL Absolute Basophils 0.01 (0.0-0.2) 10^3/uL VBG Lactate 1.5 (<or=2.0) mmol/L Sodium 138 (136-145) mmol/L Potassium 3.6 (3.5-5.1) mmol/L Chloride 102 (98-107) mmol/L Carbon Dioxide 24.1 (21.0-32.0) mmol/L Anion Gap 11.9 H (3-11) mmol/L BUN 20 H (7-18) mg/dL Creatinine 0.7 (0.55-1.02) mg/dL Est GFR (CKD-EPI 2020) 91.83 (mL/min/1.73m2) Glucose 132 H (74-106) mg/dL Calcium 10.1 (8.5-10.1) mg/dL Magnesium 2.2 (1.8-2.4) mg/dL Total Bilirubin 0.4 (0.2-1.0) mg/dL AST 14 L (15-37) U/L ALT 24 (14-59) U/L Alkaline Phosphatase 99 (46-116) U/L Troponin I Cancelled Cancelled < 4 (<or=51) ng/L Total Protein 7.7 (6.4-8.2) g/dL Albumin 3.5 (3.4-5.0) g/dL 04/14/25 13:17 Blood Culture - Pending Blood 04/14/25 12:40 Blood Culture - Pending Blood Intake and Output - 24 Hour Total 04/14/25 11:47 thru 04/14/25 14:03 Intake Total 60 Balance 60 Weight 73.028 kg Intake: IV 60 Falls Risk Assessment Contributing Factors Impairments 04/14/25 14:40 Ambulatory Aids Uses ambulatory device 04/14/25 14:40 Tubes/Lines None 04/14/25 14:40 Gait Evaluation W/no contributing factors 04/14/25 14:40 Cognition No cognitive impairment 04/14/25 14:40 Fall Total Score 28 04/14/25 14:40 Level of Risk Moderate Risk 04/14/25 14:40 Problems (Last Reviewed 04/13/25 @ 13:48 by Annemarie Paz NP) Viral upper respiratory illness (Acute) Positive blood culture (Acute) v v v v v v v v v Sending and/or Receiving Nurses: Please use comment section below to note any information pertinent to the patient hand-off not included above. Information / Comments: Report received from:micki
[2025-04-14 17:16] LABS: Lab Add On Test DONE
[2025-04-14 17:42] LABS: Procalcitonin < 0.10 ng/mL
[2025-04-14] MEDS: Melatonin 3 MG TAB PO (20:28)
[2025-04-14] MEDS: Doxycycline Hyclate 100 MG CAP PO (20:28)
[2025-04-15 07:02] LABS: Abs Immature Grans 0.11 10^3/uL (0.0-0.06); HCT 38.1 % (36.0-46.0); HGB 12.3 g/dL (11.2-15.7); Immature Grans % 0.7 %; MCH 28.3 pg (27.0-33.0); MCHC 32.3 % (32.0-36.0); MCV 88 fL (80-95); MPV 10.9 fL (8.0-11.0); Platelet Count 291 10^3/uL (130-400); RBC 4.34 10^6/uL (3.93-5.22); RDW 13.4 % (11.7-14.6); RDW-SD 43.1 fL; WBC 16.07 10^3/uL (4.4-10.8)
[2025-04-15 07:13] VITALS: BP 102/53; PULSE 66; RESP 17; TEMP 36.4; O2SAT 99
[2025-04-15 07:45] LABS: ALT 24 U/L (14-59); AST 12 U/L (15-37); Albumin 3.1 g/dL (3.4-5.0); Alkaline Phosphatase 79 U/L (46-116); Anion Gap 8.9 mmol/L (3-11); BUN 18 mg/dL (7-18); Bilirubin, Total 0.3 mg/dL (0.2-1.0); CO2 28.1 mmol/L (21.0-32.0); Calcium 9.6 mg/dL (8.5-10.1); Chloride 106 mmol/L (98-107); Estimated GFR 91.83 (mL/min/1.73m2); Glucose 94 mg/dL (74-106); Potassium 4.1 mmol/L (3.5-5.1); Sodium 143 mmol/L (136-145); Total Protein 7.0 g/dL (6.4-8.2)
[2025-04-15] MEDS: guaiFENesin/CODEINE PHOSPHATE 10 ML CUP 5 ML PO (08:35)
[2025-04-15] MEDS: Enoxaparin 40 MG/0.4 ML SYR SC (08:35)
[2025-04-15] MEDS: Acetaminophen 325 MG TAB 650 MG PO (08:36)
[2025-04-15] MEDS: predniSONE 20 MG TAB 40 MG PO (08:36)
[2025-04-15] MEDS: Doxycycline Hyclate 100 MG CAP PO (08:36)
[2025-04-15] MEDS: Cetirizine 10 MG TAB PO (08:37)
--- NOTE | 2025-04-15 10:06 | CMDISCH_ITS ---
Date of service: 04/15/25 Time of Service: 10:07 LACE Index Scoring Tool Questions: Length of Stay (in days): 1 Was the patient admitted via the E.D.?: Yes Comorbidities: Previous M.I. E.D. Visits: 2 Answers: Total Score: 7 Risk of Readmission: Low Risk Care Management Discharge Plan Reason for Hospitalization: positive blood culture Discharge Plan: Marlen will be discharged home with no new services. She will follow up with her community providers and plan of care and transport with family. Patient/Family Education Needs: review of discharge instructions, limitations, follow up plan and discuss Ask Me Three SDOH Health Related Social Needs: Health related social needs inadequate housing materia l hardship Health related social needs details N/A
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
--- NOTE | 2025-04-15 14:52 | INITIAL_ITS ---
Date of service: 04/15/25 Time of Service: 14:52 Care Management Initial Assmt Initial Assessment Reason for Hospitalization: positive blood culture Functional Status/Living Situation Patient Presentation: Marlen was sitting up in a chair, fully dressed, when CM met with her. She informed CM that she was being discharged shortly. Marlen lives in a single family home in [place] with her Satish. She has a son who lives in [place] and travels for work and a daughter who lives locally. 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 She is retired but worked for the [employer] for 18 years. Marlen is independent at baseline and does not receive any community services. She was seen in the ED on Tuesday for pneumonia and was discharged home. She received a call on Tuesday that one of her blood cultures turned positive and was advised to return to the hospital and was admitted. The culture is growing staph species, not aureus, thought to possibly be a contaminant. Marlen reported feeling better today and wished to be discharged, which happened this afternoon. Town of Residence: [place] Resides with: Spouse ( Satish) Significant Other/Family: Local (one child local, one out of state) Employment Status: Retired Instrumental Activities of Daily Living (ADLs): Independent Medications Medication Management: No Issues/Barriers identified Physical Functioning/Mobility Assistive Device: none Advance Directives Advance Directives: Do you have an Advance Directive: Y , 13:35 AD On File at [facility]: Y 07/03/24, 13:35 Date Asked 09/21/23 07/03/24, 13:35 AD Date Reviewed 04/14/25 04/14/25, 15:48 COLST On File at [facility] COLST Date Scanned Insurance Coverage/Financial Issues Insurance: Medicare BC/BS Care Team Visit Care Team Role Provider Type Twila Garibay NP NURSE PRACTITIONER Romain Spicer NP Primary Care Provider NURSE PRACTITIONER Adrienne Crum MD Emergency Provider [facility] STAFF PHYSICIAN Miguel Villafuerte MD Admit Provider [facility] STAFF PHYSICIAN Attending Provider Discharge Potential Discharge Needs: PCP F/U Appt Anticipated Barriers to Discharge: None Identified Patient/Family Education Needs: Review discharge instructions, discuss Ask Me Three Transportation: Private vehicle Plan: Marlen will be discharged home with no new services later today. She will follow up with her community providers and plan of care and transport with family. Social Determinants of Health Screening Social Determinants of health last assessed in clinic: 04/15/25 Will the Patient Participate in the Screening?: Yes Do you worry about having a steady place to live?: no Problems where you live: no known problems In the past 12 months, have you had to go without electric, gas, oil or water in your home?: no 1. Within the past 12 months, we worried whether our food would run out before we got money to buy more.: Never true 2. Within the past 12 months, the food we bought just didn't last and we didn't have money to get more.: Never true Has lack of transportation kept you from medical appointments or from doing things needed for daily living?: no Has anyone in your life made you feel unsafe or unsupported?: no How hard is it for you to pay for the very basics like food, housing, medical care, and heating? Would you say it is:: Not hard at all Do you want help finding or keeping work or a job?: I do not need or want help If for any reason you need help with day-to-day activities such as bathing, preparing meals, shopping, managing finances, etc., do you get the help you need?: I don?t need any help How often do you feel lonely or isolated from those around you?: Never Do you speak a language other than [place] at home?: No PFSH All Active Problems (Updated 04/14/25 @ 15:19 by Adrienne Crum MD) Blood culture positive (Acute) Atypical pneumonia (Acute) Fever and chills (Acute) Viral upper respiratory illness (Acute) Positive blood culture (Acute) Cough (Acute) Shortness of breath (Acute) Fever (Acute) Weight loss (Acute) Dyspnea (Acute) Left shoulder pain (Acute) Acute non-ST elevation myocardial infarction (NSTEMI) (Acute) Traumatic ecchymosis of left elbow (Acute) Fatigue (Acute) Dry skin (Acute) Balance disorder (Acute) Neck pain (Acute) Skin lesion (Acute) right axilla Sebaceous cyst (Acute) 06/2020 - posterior neck Right knee pain (Acute) Status post hip replacement (Acute 05/31/14) Status post rotator cuff repair (Acute) Status post total knee replacement (Acute) GERD (gastroesophageal reflux disease) (Acute) Osteoarthritis of right hip (Acute 10/07/15) Injured in March. Initially thought dislocated imaging ruled out. Is treated by Juan Fuentes. Pain and arthralgia have totally resolved at this point and she feels the joint is strong. Continue to monitor. 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 She walks with crutches. Onychomycosis (Acute) Increased BMI (Acute) Disorder characterized by back pain (Acute) MRI Tank (Lumbar) 01/04/18 - Mild low lumbar DJD, exagerated lordosis, and gentle scoliosis. No fx or masses. L3-L5 disc bulging, facet arthropathy; no large disc extrusions or limiting central canal stenosis.Suspected unilateral L5 pars interarticularis defect w/stress-related edema or a stress Fx w/edema propagating into the pedicle. Medical History Sinusitis, acute Injury of clavicle (08/25/06) Headache Only occasional at this point. Well controlled. Surgical History History of bilateral ligation of fallopian tubes History of section Status post unilateral knee replacement Ligation of fallopian tube Rotator Cuff Repair (~2006) and labrium Total replacement of hip LEFT and RIGHT section X2 Arthroplasty of knee 03/14/14; [facility]; RIGHT TKR Family History Mother , age 70 Lung cancer Father , age 70 Diabetes Essential hypertension Hyperlipidemia Stroke Brother , age 65 Cancer of head Primary cancer of sternum Lung cancer Liver cancer Maternal Grandfather , age 69 Liver cirrhosis Alcohol abuse Paternal Grandfather , age 43 Heart disease Maternal Grandmother Leukemia Paternal Grandmother , age 92 No problems noted. Son No problems noted. Daughter Asthma sports induced Social History Smoking/Tobacco Use Status: Never Second Hand Exposure: Yes Smoking risk assessment performed?: Yes Alcohol Intake: never Drug use: Never Substance use type: does not use Counseling given: No Counseling provided: none Caregiver/Support person: No Household members: spouse Housing: house Communication Needs: None Do you need help understanding health information?: Rarely Pets and animals: No Sexually active: No Do you think of yourself as: straight/heterosexual Current gender identity: female What is your relationship status?: How often do you talk on the phone with friends or family?: three or more times per week How often do you get together with friends or relatives?: three or more times per week How often do you attend oriental orthodox or rastafarian services?: decline to answer Do you belong to any clubs or organized social groups?: no Panel score (0-1 are the most socially isolated patients): 2 What type of physical activity do you participate in: walking and bicycling Duration: 30-45 minutes/day Frequency: 5-6 times per week Roselia/Latter-Day: No preference Special roselia needs: No Seatbelt use: always Helmet use: Yes Helmet use: sometimes Drive intox or ride w/intox delivery route driver: No Do you feel safe at home: Yes Do you feel safe in your relationship?: Yes
== END 2025-04-15 13:51 | disposition home or self-care (01) ==
LOC: ER 15:19 → MS 15:48
PROVIDERS: Admitting Provider Hospitalist; Emergency Provider Emergency Medicine; PCP Nurse Practitioner Family; Responsible Provider Nurse Practitioner Acute Care; Visit Provider Hospitalist
DX: J06.9 Acute upper respiratory infection, unspecified (principal); R78.81 Bacteremia; R50.9 Fever, unspecified; R05.9 Cough, unspecified; R06.02 Shortness of breath; I25.2 Old myocardial infarction; E55.9 Vitamin D deficiency, unspecified; K21.9 Gastro-esophageal reflux disease without esophagitis; G14 Postpolio syndrome; B35.1 Tinea unguium; M47.816 Spondylosis without myelopathy or radiculopathy, lumbar region; Z96.643 Presence of artificial hip joint, bilateral; Z96.651 Presence of right artificial knee joint; Z79.899 Other long term (current) drug therapy
CPT/HCPCS: 00123; 36415; 80053; 84145; 87040; 94640; 96365; 96372; 99285; J1650; 83605; 83735; 84484; 85025; 99222; 99239; G0378; J0696; J7512; J7620

== ENCOUNTER 2025-04-18 01:04 | Outpatient (CLI) | payer MEDICARE, BC, SELFPAY ==
--- NOTE | 2025-04-18 08:14 | DI.CT_ITS ---
Exam(s) CT CHEST WO EXAM: CT CHEST WO CLINICAL HISTORY: no improvement with steroids,dyspnea, wt loss,r06.00. TECHNIQUE: Imaging protocol: Axial computed tomography images were obtained and coronal and sagittal reformatted images were created and reviewed. Computer aided detection (CAD) was utilized. CONTRAST MATERIAL: Noncontrast COMPARISON: CR,XR XR PORTABLE CHEST AP from 04/13/2025 FINDINGS: Pulmonary parenchyma: No consolidation. No suspicious nodules. Interstitial changes: None. Emphysema: None. Tracheobronchial tree: No mucous plugging. No bronchiectasis . Pleura: No effusion or pneumothorax. Heart: The heart is mildly dilated. The coronary arteries show mild calcifications. Aorta: Thoracic aorta non-dilated. Mild atherosclerotic changes. Lymph nodes: No enlarged lymph nodes. Bones: Mild degenerative changes are seen. No evidence of compression fracture. Upper abdomen: Unremarkable. Soft tissues: Unremarkable. IMPRESSION: No acute abnormality. RADIATION DOSE DELIVERED: 251.1mGy.cm Total DLP 251.1mGy.cm Total DLP DATA REPOSITORY: All CT scans at this facility are submitted to the National Radiology Data Registry (NRDR) Dose Index Registry (DIR) with the [employer] (ACR). RADIATION OPTIMIZATION: All CT scans at this facility use at least one of these dose optimization techniques: automated exposure control; mA and/or kV adjustment per patient size (includes targeted exams where dose is matched to clinical indication); or iterative reconstruction.
== END 2025-04-18 01:24 ==
LOC: DI 01:04
PROVIDERS: PCP Nurse Practitioner Family; Visit Provider Nurse Practitioner Family
DX: R06.00 Dyspnea, unspecified (principal); R63.4 Abnormal weight loss
CPT/HCPCS: 71250

== ENCOUNTER 2025-05-27 15:05 | Outpatient (CLI) | payer MEDICARE, BC, SELFPAY ==
[2025-05-27] MEDS: Inhaler, Assist Device 1 EACH MC (16:57)
[2025-05-27] MEDS: Methacholine 100 MG VIAL IH (16:57)
[2025-05-27] MEDS: Albuterol HFA 18 GM 200 PUFF INH IH (16:58)
--- NOTE | 2025-05-29 15:07 | W.PFT ---
Date of service: 05/27/25 Time of Service: 14:57 Pulmonary Function Test Result Indications: Dyspnea Impression 1. Good patient effort was noted. ATS standards for reproducibility were met. 2. Normal spirometry. 3. Following the administration of a bronchodilator there was not a significant response 4. At 16 mg/mL of methacholine there was a 24% fall in FEV1 Conclusion: - normal spirometry - borderline positive methacholine challenge testing - clinical correlation recommended
== END 2025-05-27 15:06 | disposition home or self-care (01) ==
LOC: RT 15:09
PROVIDERS: PCP Nurse Practitioner Family; Visit Provider Internal Medicine Pulmonary Disease
DX: R06.09 Other forms of dyspnea (principal)
CPT/HCPCS: 94070; 95070; J7674